=== PATIENT | female | born 1995 | race Caucasian/White ===

== ENCOUNTER 2017-02-06 23:44 | Observation (INO) | payer MEDICAID ==
[~2017-02-06] VITALS: Ht 160 cm; Wt 78.0 kg
[~2017-02-06 23:44] MED LIST: BENZ100 PO; CELE10TA PO; PROM25TA5 PO; TOPA50TA7 PO
[2017-02-06 23:45] VITALS: BP 139/90; PULSE 158; RESP 18; TEMP 98.6; O2SAT 100
[2017-02-06 23:54] VITALS: BP 162/96; PULSE 140; RESP 18; TEMP 98.6; O2SAT 100
[2017-02-07] VITALS (8 sets, daily range): BP systolic 107–137; BP diastolic 53–87; PULSE 84–130; RESP 16–20; TEMP 97.8–98.7; O2SAT 95–100
[2017-02-07] MEDS ORDERED: SODIUM CHLOR 0.9% 1000 ML INJ 1,000 ML IV SCH (00:05)
[2017-02-07] MEDS ORDERED: SODIUM CHLORIDE 0.9% FLUSH 10 ML FLUSH IV FLUSH PRN ×2 (00:15→08:15)
[2017-02-07] MEDS ORDERED: ONDANSETRON HCL 4 MG/2 ML VIAL IVP ONE (00:15)
[2017-02-07] MEDS ORDERED: SODIUM CHLOR 0.9% 1000 ML INJ 1,000 ML IV ONE ×2 (00:15→04:00)
[2017-02-07] MEDS ORDERED: HYDROmorphone HCL PF 1 MG/ML VIAL IVS ONE (00:15)
[2017-02-07 00:36] LABS: AUTOMATED NEUTROPHIL # 9.5 TH/MM3 (1.8-7.7); BASOPHIL # 0.1 TH/MM3 (0-0.2); BASOPHIL % 0.5 % (0.0-2.0); EOSINOPHIL # 0.3 TH/MM3 (0-0.4); EOSINOPHIL % 2.1 % (0.0-4.0); HEMATOCRIT 37.4 % (35.0-46.0); LYMPH % 18.1 % (9.0-44.0); LYMPHOCYTE # 2.3 TH/MM3 (1.0-4.8); MEAN CELL VOLUME 75.2 FL (80.0-100.0); MEAN CORPUSCULAR HEMOGLOBIN 23.5 PG (27.0-34.0); MEAN CORPUSCULAR HGB CONC 31.3 % (32.0-36.0); MONO % 5.5 % (0.0-8.0); NEUT % 73.8 % (16.0-70.0); PLATELET COUNT 433 TH/MM3 (150-450); RED BLOOD COUNT 4.97 MIL/MM3 (4.00-5.30); RED CELL DISTRIBUTION WIDTH 16.2 % (11.6-17.2); WHITE BLOOD COUNT 12.9 TH/MM3 (4.0-11.0)
[2017-02-07 00:39] LABS: HEMO FLAGS AUTO DIFF
--- NOTE | 2017-02-07 00:41 | PD ---
HPI Chief Complaint: Abdominal Pain Time Seen by Provider: 23:59 Travel History International Travel<30 days: No Contact w/Intl Traveler<30days: No Traveled to known affect area: No History of Present Illness HPI 21-year-old female arrives complaining of right abdomen pain for about 3 hours or so. She has had nausea. No vomiting or diarrhea reported. She denies fever. She denies vaginal bleeding or discharge. Last menstruation was 2 weeks prior. She's has no urinary complaint. Last oral intake was 30 minutes prior, fast food. She reports an occasional cough for the past 4 months or so as well as 3 weeks of pain on the left side of her chest. She's had no shortness of breath. She reports no prior past medical or surgical history. She denies taking any medication. She has no known allergy. PFSH Past Medical History Hx Anticoagulant Therapy: No ADHD: No Bipolar Disorder: Yes Weight (Kg): 1 Depression: Yes Cancer: No Cardiovascular Problems: No Chemotherapy: No Cerebrovascular Accident: No Diabetes: No Diminished Hearing: No Headaches: No Psychiatric: Yes (bipolar) Respiratory: No Immunizations Current: No Migraines: No Seizures: No Thyroid Disease: No Ulcer: No Tetanus Vaccination: Unknown Influenza Vaccination: No ?: Not LMP: 2 WEEKS AGO Past Surgical History Surgical History: No Previous Surgery Section: Yes Hysterectomy: No Other Surgery: No Social History Alcohol Use: No Tobacco Use: Yes Substance Use: No (PT DENIES) Allergies-Medications (Allergen,Severity, Reaction): Coded Allergies: No Known Allergies (Unverified , 02/07/17) Reported Meds & Prescriptions Reported Meds & Active Scripts Active Review of Systems Except as stated in HPI: all other systems reviewed are Neg General / Constitutional: No: Fever Gastrointestinal: Positive: Nausea, Abdominal Pain, No: Vomiting, Diarrhea Physical Exam Narrative GENERAL: 21-year-old female pleasant SKIN: Warm and dry. HEAD: Atraumatic. Normocephalic. EYES: Pupils equal and round. No scleral icterus. No injection or drainage. ENT: No nasal bleeding or discharge. Mucous membranes pink and moist. NECK: Trachea midline. No JVD. CARDIOVASCULAR: Tachycardia. Regular. RESPIRATORY: No accessory muscle use. Clear to auscultation. Breath sounds equal bilaterally. GASTROINTESTINAL: soft primarily in the right upper quadrant. No tenderness at McBurney's point. MUSCULOSKELETAL: No obvious deformities. No clubbing. No cyanosis. No edema. NEUROLOGICAL: Awake and alert. No obvious cranial nerve deficits. Motor grossly within normal limits. Normal speech. PSYCHIATRIC: Appropriate mood and affect; insight and judgment normal. Data Data Last Documented VS Vital Signs Date Time Temp Pulse Resp B/P Pulse Ox O2 Delivery O2 Flow Rate FiO2 02/07/17 06:05 98.7 111 18 135/60 99 Room Air Vital signs reviewed, tachycardia Orders Complete Blood Count With Diff (02/07/17 00:05) Comprehensive Metabolic Panel (02/07/17 00:05) Lipase (02/07/17 00:05) Lactic Acid (02/07/17 00:05) Urinalysis - C+S If Indicated (02/07/17 00:05) Ct Abd/Pel W Iv Contrast(Rout) (02/07/17 00:05) Iv Access Insert/Monitor (02/07/17 00:05) Ecg Monitoring (02/07/17 00:05) Oximetry (02/07/17 00:05) Ondansetron Inj (Zofran Inj) (02/07/17 00:15) Sodium Chlor 0.9% 1000 Ml Inj (Ns 1000 M (02/07/17 00:05) Sodium Chloride 0.9% Flush (Ns Flush) (02/07/17 00:15) Electrocardiogram (02/07/17 00:05) Hydromorphone Pf Inj (Dilaudid Pf Inj) (02/07/17 00:15) Ed Urine Pregnancytest Poc (02/07/17 00:05) Sodium Chlor 0.9% 1000 Ml Inj (Ns 1000 M (02/07/17 00:15) Morphine Inj (Morphine Inj) (02/07/17 00:45) Iohexol 350 Inj (Omnipaque 350 Inj) (02/07/17 01:00) D-Dimer (02/07/17 03:48) Chest, Pa & Lat (02/07/17 ) Morphine Inj (Morphine Inj) (02/07/17 04:00) Sodium Chlor 0.9% 1000 Ml Inj (Ns 1000 M (02/07/17 04:00) Ventilation & Perfusion Scan (02/07/17 ) Drug Screen, Random Urine (02/07/17 07:00) Admit Order (Ed Use Only) (02/07/17 07:58) Labs Laboratory Tests Test 02/07/17 02/07/17 02/07/17 02/07/17 00:09 01:45 03:55 08:00 White Blood Count 12.9 TH/MM3 Red Blood Count 4.97 MIL/MM3 Hemoglobin 11.7 GM/DL Hematocrit 37.4 % Mean Corpuscular Volume 75.2 FL Mean Corpuscular Hemoglobin 23.5 PG Mean Corpuscular Hemoglobin 31.3 % Concent Red Cell Distribution Width 16.2 % Platelet Count 433 TH/MM3 Mean Platelet Volume 8.0 FL Neutrophils (%) (Auto) 73.8 % Lymphocytes (%) (Auto) 18.1 % Monocytes (%) (Auto) 5.5 % Eosinophils (%) (Auto) 2.1 % Basophils (%) (Auto) 0.5 % Neutrophils # (Auto) 9.5 TH/MM3 Lymphocytes # (Auto) 2.3 TH/MM3 Monocytes # (Auto) 0.7 TH/MM3 Eosinophils # (Auto) 0.3 TH/MM3 Basophils # (Auto) 0.1 TH/MM3 CBC Comment AUTO DIFF Differential Comment AUTO DIFF CONFIRMED Ovalocytes 1+ Sodium Level 141 MEQ/L Potassium Level 3.5 MEQ/L Chloride Level 109 MEQ/L Carbon Dioxide Level 25.8 MEQ/L Anion Gap 6 MEQ/L Blood Urea Nitrogen 9 MG/DL Creatinine 0.95 MG/DL Estimat Glomerular Filtration 76 ML/MIN Rate Random Glucose 103 MG/DL Lactic Acid Level 1.7 mmol/L Calcium Level 9.1 MG/DL Total Bilirubin 0.3 MG/DL Aspartate Amino Transf 14 U/L (AST/SGOT) Alanine Aminotransferase 24 U/L (ALT/SGPT) Alkaline Phosphatase 93 U/L Total Protein 7.9 GM/DL Albumin 4.1 GM/DL Lipase 98 U/L Urine Color COLORLESS Urine Turbidity CLEAR Urine pH 8.5 Urine Specific [place] 1.049 Urine Protein NEG mg/dL Urine Glucose (UA) NEG mg/dL Urine Ketones NEG mg/dL Urine Occult Blood NEG Urine Nitrite NEG Urine Bilirubin NEG Urine Urobilinogen LESS THAN 2.0 MG/DL Urine Leukocyte Esterase NEG Urine RBC LESS THAN 1 /hpf Urine WBC LESS THAN 1 /hpf Urine Squamous Epithelial 1 /hpf Cells Urine Mucus FEW /lpf Microscopic Urinalysis Comment CULT NOT INDICATED D-Dimer Quantitative (PE/DVT) 0.22 MG/L FEU Urine Opiates Screen NEG Urine Barbiturates Screen NEG Urine Amphetamines Screen NEG Urine Benzodiazepines Screen NEG Urine Cocaine Screen NEG Urine Cannabinoids Screen NEG MDM Medical Decision Making Medical Screen Exam Complete: Yes Emergency Medical Condition: Yes Differential Diagnosis Constipation, Gastritis, Acute Cholecystitis, Biliary Colic, Pancreatitis, MUNOZ , Hepatitis, Bowel Obstruction, Cystitis, Mesenteric Ischemia, AAA, Appendicitis , Renal Stone/Hydronephrosis, GERD, perforated viscous Narrative Course CBC & BMP Diagram 02/07/17 00:09 Lactic acid 1.7 LFTs normal Lipase normal Urinalysis unremarkable CT abdomen and pelvis: 3.5 cm cyst in the left adnexa Last 24 hours Impressions Abdomen/Pelvis CT 02/07/17 0005 Signed Impressions: Service Date/Time: Tuesday, February 07, 2017 01:18 - CONCLUSION: 1. No acute abnormality to explain the patient's right lower quadrant pain. In particular, the appendix is normal by CT criteria. 2. 3.5 cm cyst involving the adnexa. This is presumably ovarian in nature. Consideration should be made to a followup pelvic ultrasound following 2-3 menstrual cycles to document resolution. Ronan Swain Jr., MD Chest X-Ray 02/07/17 0000 Signed Impressions: Service Date/Time: Tuesday, February 07, 2017 05:09 - CONCLUSION: Normal examination. Ronan Swain Jr., MD Patient has received 3 L crystalloid and is persistently tachycardic. She is also received morphine twice. Admission for persistent unexplained tachycardia in this otherwise healthy 21 yo F. D/w Dr Montero at approx 800am. Diagnosis Primary Impression: Tachycardia Additional Impressions: Abdominal pain Qualified Code: R10.9 - Abdominal pain, unspecified location Chest pain Qualified Code: R07.9 - Chest pain, unspecified type Admitting Information Admitting Physician Requests: Admit Scripts No Active Prescriptions or Reported Meds Khang De Paz MD Feb 07, 2017 00:41
[2017-02-07 00:44] LABS: ALT (GPT) 24 U/L (9-42); ANION GAP 6 MEQ/L (5-15); AST (GOT) 14 U/L (16-38); BICARBONATE 25.8 MEQ/L (21.0-32.0); BLOOD UREA NITROGEN 9 MG/DL (7-18); CHLORIDE 109 MEQ/L (98-107); GLOMERULAR FILTRATION RATE 76 ML/MIN (>89); POTASSIUM 3.5 MEQ/L (3.5-5.1); SODIUM (NA) 141 MEQ/L (136-145)
[2017-02-07] MEDS ORDERED: MORPHINE SULFATE 8 MG/ML INJ IV PUSH ONE ×4 (00:45→08:45)
[2017-02-07 00:46] LABS: ALKALINE PHOSPHATASE 93 U/L (45-117); TOTAL BILIRUBIN ADULT 0.3 MG/DL (0.2-1.0)
[2017-02-07] MEDS ORDERED: IOHEXOL 350 MG/ML 10 ML VIAL (for RAD DIAG) IV ONE (01:00)
--- NOTE | 2017-02-07 02:15 | RADRPT ---
EXAM DATE/TIME: 02/07/2017 01:18 [facility] COMPARISON: No previous studies available for comparison. INDICATIONS : Right sided abdominal pain with nausea. IV CONTRAST: 98 cc Omnipaque 350 (iohexol) IV ORAL CONTRAST: No oral contrast ingested. RADIATION DOSE: 11.80 CTDIvol (mGy) MEDICAL HISTORY : None SURGICAL HISTORY : section. ENCOUNTER: Initial ACUITY: 1 day PAIN SCALE: 9/10 LOCATION: Right abdomen TECHNIQUE: Volumetric scanning of the abdomen and pelvis was performed. Using automated exposure control and ad justment of the mA and/or kV according to patient size, radiation dose was kept as low as reasonably achievable to obtain optimal diagnostic quality images. FINDINGS: LOWER LUNGS: The visualized lower lungs are clear. LIVER: Homogeneous density without lesion. There is no dilation of the biliary tree. No calcified gallston es. SPLEEN: Normal size without lesion. PANCREAS: Within normal limits. KIDNEYS: Normal in size and shape. There is no mass, stone or hydronephrosis. ADRENAL GLANDS: Within normal limits. VASCULAR: There is no aortic aneurysm. BOWEL/MESENTERY: The stomach, small bowel, and colon demonstrate no acute abnormality. There is no free intraperitone al air or fluid. Appendix is normal by CT criteria. ABDOMINAL WALL: Within normal limits. RETROPERITONEUM: There is no lymphadenopathy. BLADDER: No wall thickening or mass. REPRODUCTIVE: A 3.5 cm cystic lesion is seen within the left adnexa. The right adnexa and uterus are unremarkable. INGUINAL: There is no lymphadenopathy or hernia. MUSCULOSKELETAL: Within normal limits for patient age. CONCLUSION: 1. No acute abnormality to explain the patient's right lower quadrant pain. In particular, the append ix is normal by CT criteria. 2. 3.5 cm cyst involving the adnexa. This is presumably ovarian in nature. Consideration should be ma de to a followup pelvic ultrasound following 2-3 menstrual cycles to document resolution. Ronan Swain Jr., MD on February 07, 2017 at 1:49 Board Certified Radiologist. This report was verified electronically.
[2017-02-07 02:48] LABS: BLOOD, URINE NEG (NEG); COMMENT (UR) CULT NOT INDICATED; CULTURE IF INDICATED CULT NOT INDICATED; GLUCOSE,URINE NEG (NEG); KETONE, URINE NEG (NEG); MUCUS URINE FEW /lpf (OCC); NITRITE,URINE NEG (NEG); PH, URINE 8.5 (5.0-8.5); SQUAMOUS EPITHELIAL CELL URINE 1 /hpf (0-5); URINE COLOR COLORLESS (YELLW/STRAW)
[2017-02-07 02:58] LABS: OVALOCYTES 1+ (NORMAL); SCAN/DIFF AUTO DIFF CONFIRMED
--- NOTE | 2017-02-07 04:34 | RADRPT ---
EXAM DATE/TIME: 02/07/2017 05:09 [facility] COMPARISON: CHEST PA & LAT, September 20, 2016, 20:49. INDICATIONS : Congestion. Cough. MEDICAL HISTORY : None. SURGICAL HISTORY : None. ENCOUNTER: Initial ACUITY: 1 day PAIN SCORE: 6/10 LOCATION: Bilateral chest FINDINGS: PA and lateral views of the chest demonstrate the lungs to be symmetrically aerated without evidence of mass, infiltrate or effusion. The cardiomediastinal contours are unremarkable. Osseous structure s are intact. CONCLUSION: Normal examination. Ronan Swain Jr., MD on February 07, 2017 at 4:32 Board Certified Radiologist. This report was verified electronically.
[2017-02-07] MEDS ORDERED: NALOXONE HCL 0.4 MG/ML AMP IV PRN (08:15)
[2017-02-07] MEDS: SODIUM CHLORIDE 0.9% FLUSH 10 ML FLUSH IV FLUSH SCH ×2 (08:39→21:00)
[2017-02-07 08:46] LABS: AMPHETAMINE, URINE NEG (NEG); BARBITURATES, URINE NEG (NEG); COCAINE, URINE NEG (NEG)
[2017-02-07] MEDS ORDERED: MAGNESIUM HYDROXIDE SUSP 30 ML CUP PO ONE (09:00)
--- NOTE | 2017-02-07 11:41 | RADRPT ---
EXAM DATE/TIME: 02/07/2017 11:09 [facility] COMPARISON: CHEST PA & LAT, February 07, 2017, 5:09. INDICATIONS : Left chest pain for 3 weeks. DOSE: 8.1 mCi Tc99m MAA IV 1.5 mCi Tc99m DTPA aerosol MEDICAL HISTORY : Bipolar. SURGICAL HISTORY : None. ENCOUNTER: Initial ACUITY: 1 day PAIN SCALE: 3/10 LOCATION: Left chest TECHNIQUE: Following five minutes of tidal breathing of DTPA aerosol, planar images of the lungs were performed in eight projections. The patient was then injected with MAA, and eight-view perfusion scan was perf ormed. FINDINGS: There is a homogeneous pattern of aerosol delivery to the periphery of both lungs. No focal ventilat ory defects are seen. The perfusion lung scan demonstrates a homogenous pattern of uptake in both lungs. No segmental or s ubsegmental defects are seen. CONCLUSION: Normal exam.. Soni Ward MD on February 07, 2017 at 11:38 Board Certified Radiologist. This report was verified electronically.
--- NOTE | 2017-02-07 14:49 | EKG ---
Date Performed: 02/07/2017 Time Performed: 00:14:46 PTAGE: 21 years EKG: SINUS TACHYCARDIA ABNORMAL RHYTHM ECG NO PREVIOUS TRACING DOCTOR: Demarcus Canales Interpretating Date/Time 02/07/2017 14:46:43
[2017-02-07] MEDS: ONDANSETRON ODT 4 MG TAB PO PRN (16:40)
[2017-02-07] MEDS: MORPHINE SULFATE 4 MG/ML INJ IV PUSH PRN ×2 (16:59→22:44)
[2017-02-07] MEDS: SODIUM CHLOR 0.45% 1000 ML INJ 1,000 ML IV SCH ×2 (17:00→19:38)
[2017-02-07] MEDS ORDERED: PANTOPRAZOLE SODIUM 40 MG VIAL IV PUSH ONE (21:30)
--- NOTE | 2017-02-07 22:17 | HHI.HP ---
[facility] Primary Care Physician Admission Diagnosis Tachycardia, Abd Pain, Chest Pain Diagnoses: Travel History International Travel<30 Days: No Contact w/Intl Traveler <30 Da: No Traveled to Known Affected Are: No History of Present Illness Patient is a 21-year-old female with a history of depression, bipolar disorder, ulcer, who presents with acute onset constant, sharp , umbilical/right lower quadrant painwhich subsequently radiated to right upper quadrant with no exacerbating or relieving factors. This pain started shortly after eating 2 burgers at a fast food place. She also reports a six-month history of occasional sharp, intermittent stabbing pain in the left chest exacerbated by breathing and with associated shortness of breath. patient does report a 10 pound intentional weight loss over the past month. her friend is in the room and states that he had appendicitis recently, and her symptoms are almost exactly the same. Review of Systems performed and negative except for HPI and past medical history. Past Family Social History Past Medical History History of ulcer Depression Bipolar disorder History of Tylenol overdose in 2015 Past Surgical History No history of surgery Allergies: Coded Allergies: No Known Allergies (Unverified , 02/07/17) Family History Mother with diabetes. Father with diabetes, hypertension, [place] in his 40s patient believes Social History Patient smokes 1 cigarette per week, reports drinking about 1 drink per week, denies any illicit drugs. Physical Exam Vital Signs Vital Signs Date Time Temp Pulse Resp B/P Pulse Ox O2 Delivery O2 Flow Rate FiO2 02/07/17 20:57 98.0 97 18 107/53 99 02/07/17 15:35 98.1 109 20 132/81 97 02/07/17 11:37 84 17 121/87 99 Room Air 02/07/17 08:31 113 18 137/75 100 Room Air 02/07/17 06:05 98.7 111 18 135/60 99 Room Air 02/07/17 04:00 100 Room Air 02/07/17 04:00 130 18 121/60 100 Room Air 02/06/17 23:54 98.6 140 18 162/96 100 02/06/17 23:45 98.6 158 18 139/90 100 Room Air Physical Exam GENERAL: This is a well-nourished, well-developed patient, in no apparent distress.she is alert and oriented 3. Appears comfortable. SKIN: No rashes, ecchymoses or lesions. Cool and dry. HEAD: Atraumatic. Normocephalic. No temporal or scalp tenderness. EYES: Pupils equal round and reactive. Extraocular motions intact. No scleral icterus. No injection or drainage. ENT: Nose without bleeding, purulent drainage or septal hematoma. Throat without erythema, tonsillar hypertrophy or exudate. Uvula midline. Airway patent. NECK: Trachea midline. No JVD or lymphadenopathy. Supple, nontender, no meningeal signs. CARDIOVASCULAR: Regular rate and rhythm without murmurs, gallops, or rubs. RESPIRATORY: Clear to auscultation. Breath sounds equal bilaterally. No wheezes , rales, or rhonchi. GASTROINTESTINAL: Abdomen soft, nondistended. abdominal tenderness is not consistent.No hepato-splenomegaly, or palpable masses. No guarding. MUSCULOSKELETAL: Extremities without clubbing, cyanosis, or edema. No joint tenderness, effusion, or edema noted. No calf tenderness. Negative Homans sign bilaterally. NEUROLOGICAL: Awake and alert. Cranial nerves II through XII intact. Motor and sensory grossly within normal limits. Five out of 5 muscle strength in all muscle groups. Normal speech. Laboratory Laboratory Tests Test 02/07/17 02/07/17 02/07/17 02/07/17 00:09 01:45 03:55 08:00 White Blood Count 12.9 Red Blood Count 4.97 Hemoglobin 11.7 Hematocrit 37.4 Mean Corpuscular Volume 75.2 Mean Corpuscular Hemoglobin 23.5 Mean Corpuscular Hemoglobin 31.3 Concent Red Cell Distribution Width 16.2 Platelet Count 433 Mean Platelet Volume 8.0 Neutrophils (%) (Auto) 73.8 Lymphocytes (%) (Auto) 18.1 Monocytes (%) (Auto) 5.5 Eosinophils (%) (Auto) 2.1 Basophils (%) (Auto) 0.5 Neutrophils # (Auto) 9.5 Lymphocytes # (Auto) 2.3 Monocytes # (Auto) 0.7 Eosinophils # (Auto) 0.3 Basophils # (Auto) 0.1 CBC Comment AUTO DIFF Differential Comment AUTO DIFF CONFIRMED Ovalocytes 1+ Sodium Level 141 Potassium Level 3.5 Chloride Level 109 Carbon Dioxide Level 25.8 Anion Gap 6 Blood Urea Nitrogen 9 Creatinine 0.95 Estimat Glomerular Filtration 76 Rate Random Glucose 103 Lactic Acid Level 1.7 Calcium Level 9.1 Total Bilirubin 0.3 Aspartate Amino Transf 14 (AST/SGOT) Alanine Aminotransferase 24 (ALT/SGPT) Alkaline Phosphatase 93 Total Protein 7.9 Albumin 4.1 Lipase 98 Urine Color COLORLESS Urine Turbidity CLEAR Urine pH 8.5 Urine Specific [place] 1.049 Urine Protein NEG Urine Glucose (UA) NEG Urine Ketones NEG Urine Occult Blood NEG Urine Nitrite NEG Urine Bilirubin NEG Urine Urobilinogen LESS THAN 2.0 Urine Leukocyte Esterase NEG Urine RBC LESS THAN 1 Urine WBC LESS THAN 1 Urine Squamous Epithelial 1 Cells Urine Mucus FEW Microscopic Urinalysis Comment CULT NOT INDICATED D-Dimer Quantitative (PE/DVT) 0.22 Urine Opiates Screen NEG Urine Barbiturates Screen NEG Urine Amphetamines Screen NEG Urine Benzodiazepines Screen NEG Urine Cocaine Screen NEG Urine Cannabinoids Screen NEG Result Diagram: 02/07/17 0009 02/07/17 0009 Imaging Last Impressions Abdomen/Pelvis CT 02/07/17 0005 Signed Impressions: Service Date/Time: Tuesday, February 07, 2017 01:18 - CONCLUSION: 1. No acute abnormality to explain the patient's right lower quadrant pain. In particular, the appendix is normal by CT criteria. 2. 3.5 cm cyst involving the adnexa. This is presumably ovarian in nature. Consideration should be made to a followup pelvic ultrasound following 2-3 menstrual cycles to document resolution. Ronan Swain Jr., MD Lung Scan- Nuclear Medicine 02/07/17 0000 Signed Impressions: Service Date/Time: Tuesday, February 07, 2017 11:09 - CONCLUSION: Normal exam.. Soni Ward MD Chest X-Ray 02/07/17 0000 Signed Impressions: Service Date/Time: Tuesday, February 07, 2017 05:09 - CONCLUSION: Normal examination. Ronan Swain Jr., MD Assessment and Plan Assessment and Plan //Acute abdominal pain -CT abdomen negative for appendicitis, cholecystitis. LFTs unremarkable. Left ovarian cyst. -We'll consult GI given patient's reported history of ulcer. Start Protonix. Patient does have what looks like iron deficiency, however this is likely secondary to menstrual losses. //Nausea, vomiting. Acute. -Patient reports history of ulcer. Urine drug screen negative. -Zofran by mouth as necessary. //Tachycardia in the 160s on admission. Initially suspected drugs given patient 's past history, however -Urine drug screen is negative. Urine is quite basic, has no cells whatsoever. We'll order creatinine, sodium of urine. -Likely secondary to stress from nausea and vomiting versus substance abuse.. Improved with fluids. //Left ovarian cyst. -Last. Was 2 weeks ago. This is likely ovulation. Patient reports having some pain with ovulation the past. This is left-sided however, does not explain her right-sided pain. -She can have a repeat ultrasound with her primary care in several weeks to verify clearing. This is likely simply a ovulation cyst. //Occasional smoking. Cessation strongly advised. Counseling provided. //History of depression and bipolar disorder. Patient has discontinued all of her medications. I strongly suspect that her abdominal pain is factitious. We 'll consult psychiatry //Chronic intermittent left-sided chest pain. -D-dimer negative. VQ scan negative here. This is likely pleural catch. No chest pain currently. //Prophylaxis. SCDs. Holding anticoagulation for possible ulcer. Discussed Condition With patient, nurse, friend in room Adolfo Montero MD Feb 07, 2017 22:17
[2017-02-07 23:05] LABS: TRANSFERRIN IRON PROFILE 369 MG/DL (200-360)
[2017-02-07 23:08] LABS: FERRITIN 5 NG/ML (8-252)
[2017-02-08] VITALS (7 sets, daily range): BP systolic 107–146; BP diastolic 54–74; PULSE 82–109; RESP 16–20; TEMP 96.1–98.7; O2SAT 95–98
[2017-02-08] MEDS: SODIUM CHLOR 0.45% 1000 ML INJ 1,000 ML IV SCH ×3 (03:38→17:59)
[2017-02-08] MEDS: MORPHINE SULFATE 4 MG/ML INJ IV PUSH PRN ×2 (04:56→21:29)
[2017-02-08 06:05] LABS: ALKALINE PHOSPHATASE 83 U/L (45-117); ALT (GPT) 17 U/L (9-42); ANION GAP 11 MEQ/L (5-15); AST (GOT) 11 U/L (16-38); BICARBONATE 22.8 MEQ/L (21.0-32.0); BLOOD UREA NITROGEN 8 MG/DL (7-18); CHLORIDE 108 MEQ/L (98-107); GLOMERULAR FILTRATION RATE 78 ML/MIN (>89); POTASSIUM 4.1 MEQ/L (3.5-5.1); SODIUM (NA) 142 MEQ/L (136-145); TOTAL BILIRUBIN ADULT LESS THAN 0.1 MG/DL (0.2-1.0)
[2017-02-08] MEDS: SODIUM CHLORIDE 0.9% FLUSH 10 ML FLUSH IV FLUSH SCH ×2 (09:00→20:47)
[2017-02-08] MEDS: PANTOPRAZOLE SODIUM 40 MG VIAL IV PUSH SCH ×2 (09:08→20:47)
--- NOTE | 2017-02-08 10:59 | PD.CONS ---
HPI History of Present Illness This is a 21 year old female who came to the ER for evaluation of abdominal pain. This began Wednesday afternoon. She reports that the pain began below her umbilicus. This was a constant "stabbing pain." As time passed, the pain became more severe and moved to her RLQ. She had a chicken sandwich from [employer] that evening and her pain became more severe after eating. She had some associated chills without fever. She did have associated nausea and vomiting. Initially this was a white foam. This is now a bilious material. She feels that the Morphine seems to be aggravated her nausea/vomiting at this point. She denies any constipation or diarrhea. She denies seeing any blood in her stool. She denies any sick contacts, recent travel, new medications. She does have heartburn and takes antacids almost daily. She has lost 10 lbs over the past month intentionally. She has never had an EGD/Colonoscopy. She does have "heavy and painful" periods. She denies any chance of . She is not followed by a top cleaner at this time. Her last menstrual cycle was 2 weeks ago. She does report that recently, she has had stress incontinence with sneezing/coughing. She denies any dysuria/hematuria. She also reports that she has a hx of ulcers, but she has never had an endoscopy. Abdomen/Pelvis CT ( 02/07/17) 1. No acute abnormality to explain the patient's right lower quadrant pain. In particular, the appendix is normal by CT criteria. 2. 3.5 cm cyst involving the adnexa. This is presumably ovarian in nature. Consideration should be made to a followup pelvic ultrasound following 2-3 menstrual cycles to document resolution. She reports that her pain has subsided and that she currently only has a lower abdominal pressure. She ate a cheeseburger this am and tolerated this. (Laurie Mckeon) PFSH Past Medical History History of ulcer Depression Bipolar disorder History of Tylenol overdose in 2014 Menorrhagia/Dysmenorrhea Past Surgical History No history of surgery (Laurie Mckeon) Coded Allergies: No Known Allergies (Unverified , 02/07/17) Medications Allergies Coded Allergies Type Severity Reaction Last Updated Verified No Known Allergies 02/07/17 No Active Scripts Medications Dose Route/Sig Days Date Category Family History Mother with diabetes. Father with diabetes, hypertension, [place] in his 40s patient believes Social History Smokes once or twice a week. Drinks about one drink per week. Denies any illicit drug use. (Laurie Mckeon) Review of Systems Constitutional: COMPLAINS OF: Fatigue, Weight loss (10 lb weight loss in one month- intentional) Respiratory: DENIES: Cough Cardiovascular: DENIES: Chest pain Gastrointestinal: COMPLAINS OF: Abdominal pain, Nausea, Vomiting, Heartburn, DENIES: Black stools, Bloody stools, Constipation, Diarrhea Genitourinary: COMPLAINS OF: Urinary incontinence Integumentary: DENIES: Abnormal pigmentation Hematologic/lymphatic: DENIES: Bruising Neurologic: DENIES: Headache Psychiatric: DENIES: Confusion (Laurie Mckeon) GI Exam Vitals I&O Vital Signs Date Time Temp Pulse Resp B/P Pulse Ox O2 Delivery O2 Flow Rate FiO2 02/08/17 07:49 97.2 90 16 119/67 98 02/08/17 05:15 18 02/08/17 04:29 98.7 109 16 139/70 98 02/08/17 00:08 84 02/07/17 23:47 97.8 90 16 131/62 95 02/07/17 21:24 98.0 97 18 107/53 99 02/07/17 20:57 98.0 97 18 107/53 99 02/07/17 15:35 98.1 109 20 132/81 97 02/07/17 11:37 84 17 121/87 99 Room Air I/O 02/07/17 02/07/17 02/07/17 02/08/17 02/08/17 02/08/17 07:00 15:00 23:00 07:00 15:00 23:00 Intake Total 793 ml Balance 793 ml Intake Oral 480 ml IV Total 313 ml # Voids 6 3 Imaging Last Impressions Abdomen/Pelvis CT 02/07/17 0005 Signed Impressions: Service Date/Time: Tuesday, February 07, 2017 01:18 - CONCLUSION: 1. No acute abnormality to explain the patient's right lower quadrant pain. In particular, the appendix is normal by CT criteria. 2. 3.5 cm cyst involving the adnexa. This is presumably ovarian in nature. Consideration should be made to a followup pelvic ultrasound following 2-3 menstrual cycles to document resolution. Ronan Swain Jr., MD Lung Scan-VQ Nuclear Medicine 02/07/17 0000 Signed Impressions: Service Date/Time: Tuesday, February 07, 2017 11:09 - CONCLUSION: Normal exam.. Soni Ward MD Chest X-Ray 02/07/17 0000 Signed Impressions: Service Date/Time: Tuesday, February 07, 2017 05:09 - CONCLUSION: Normal examination. Ronan Swain Jr., MD Laboratory Test 02/08/17 04:48 Sodium Level 142 MEQ/L Potassium Level 4.1 MEQ/L Chloride Level 108 MEQ/L Carbon Dioxide Level 22.8 MEQ/L Anion Gap 11 MEQ/L Blood Urea Nitrogen 8 MG/DL Creatinine 0.93 MG/DL Estimat Glomerular Filtration 78 ML/MIN Rate Random Glucose 106 MG/DL Calcium Level 8.5 MG/DL Total Bilirubin LESS THAN 0.1 MG/DL Aspartate Amino Transf 11 U/L (AST/SGOT) Alanine Aminotransferase 17 U/L (ALT/SGPT) Alkaline Phosphatase 83 U/L Total Protein 6.4 GM/DL Albumin 3.3 GM/DL Physical Examination HEENT: Normocephalic; atraumatic; no jaundice. CHEST: CTA. CARDIAC: RRR. ABDOMEN: Soft, nondistended, NONtender; no hepatosplenomegaly; bowel sounds are present in all four quadrants. EXTREMITIES: No clubbing, cyanosis, or edema. SKIN: Normal; no rash; no jaundice. 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 (Laurie MckeonP) Assessment and Plan Plan ASSESSMENT: - Abdominal pain. 2 day hx of abdominal pain. Began Wednesday with lower abdominal pain below umbilicus that then moved to [facility], with associated n/v. Abdomen/Pelvis CT (02/07/17) 1. No acute abnormality to explain the patient's right lower quadrant pain. In particular, the appendix is normal by CT criteria. 2. 3.5 cm cyst involving the adnexa. This is presumably ovarian in nature. Consideration should be made to a followup pelvic ultrasound following 2-3 menstrual cycles to document resolution. Mild leukocytosis 12.9 yesterday. Will recheck. LFT normal. Lipase normal. Pt appears comfortable. She and her boyfriend were in bed together and she was speaking on phone in no distress. States she had a cheeseburger for breakfast. States her pain has improved and is now just "pressure." She is nontender on exam. Will give PPI/Dicyclomine. 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 Recommend seeing top cleaner as outpt. - N/V. Improved. Now only having after taking morphine. - GERD/Heartburn. She was having frequent episodes. Suspect this may be aggravated by her diet. PPI. - Dysmenorrhea, Menorrhagia, ovarian cyst. CT with 3.5 ovarian cyst. Recommends FU pelvic US 2-3 menstrual cycles to document resolution. PLAN: - SHARON (She is actually NPO, but eating food brought to her. Tolerated cheeseburger for breakfast) - Antireflux measures - Cont. 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 Dalal and myself and this note is written on his behalf (Laurie Mckeon) Physician Comments Patient continues to complain of pain in the upper and right upper abdomen she does admit to have used ibuprofen and has had issues with nausea and vomiting although she was seen eating a burger earlier At this point I will proceed with an EGD to further evaluate the symptoms ( Alec Dalal MD) Laurie Mckeon Feb 08, 2017 10:59 Alec Dalal MD Feb 08, 2017 22:01
--- NOTE | 2017-02-08 12:09 | PD.CONS ---
Provisional Diagnosis Admission Date Feb 07, 2017 at 08:00 [place] I. Adjustment disorder with depression, bipolar disorder, Hobbs use disorder [place] II. Unspecified personality disorder [place] III. Abdominal pain [place] IV. Unemployed [place] V. 57 History of Present Illness Service Psychiatry Consult Requested By Primary Care Physician No Primary Care Physician HPI The patient is a 21-year-old woman, domiciled with and her best friend, unemployed, with psychiatric history of bipolar disorder, anxiety, depression, 3 previous psychiatric hospitalizations, last hospitalization was in 2016 in [facility], history of self cutting behavior, 3 previous suicidal attempts by overdosing, no active outpatient psychiatric care or psychotropics, no significant medical history, who presents with acute onset constant, sharp , umbilical/right lower quadrant painwhich subsequently radiated to right upper quadrant with no exacerbating or relieving factors. This pain started shortly after eating 2 burgers at a fast food place. She also reports a six-month history of occasional sharp, intermittent stabbing pain in the left chest exacerbated by breathing and with associated shortness of breath.patient does report a 10 pound intentional weight loss over the past month. Her friend is in the room and states that he had appendicitis recently, and her symptoms are almost exactly the same. On psychiatric evaluation today patient is found sleeping in her bed in the ER, her "best friend"is with her the sleeping in the same bed. Patient reports that she feels now much better of her abdominal pain, she reports good mood, when she came to the ER she was feeling anxious and depressed secondary to the belief that something wrong was going on. Patient denies depressive symptoms, she denies anhedonia, she denies hopelessness, she denies helplessness, she denies suicidal ideation, she developed ideation. Patient is future oriented, he was able to share plans for the future, she states she is now thinking about buying a house and finish and her college. She denies anxiety, she denies manic symptoms, she denies visual and auditory hallucinations. Patient is fully oriented, no paranoia, no delusions observed. She reports occasional use of marijuana, denies the use of other illicit drugs, denies the use of alcohol. Review of Systems Constitutional: DENIES: Diaphoretic episodes, Fatigue, Fever, Weight gain, Weight loss, Chills, Dizziness, Change in appetite, Night Sweats Endocrine: DENIES: Abnorml menstrual pattern, Heat/cold intolerance, Polydipsia , Polyuria, Polyphagia Ears, nose, mouth, throat: DENIES: Tinnitus, Hearing loss, Vertigo, Nasal discharge, Oral lesions, Throat pain, Hoarseness, Ear Pain, Running Nose, Epistaxis, Sinus Pain, Toothache, Odynophagia Cardiovascular: DENIES: Chest pain, Palpitations, Syncope, Dyspnea on Exertion , PND, Lower Extremity Edema, Orthopnea, Claudication Gastrointestinal: DENIES: Abdominal pain, Black stools, Bloody stools, Constipation, Diarrhea, Nausea, Vomiting, Difficulty Swallowing, Anorexia Musculoskeletal: DENIES: Joint pain, Muscle aches, Stiffness, Joint Swelling, Back pain, Neck pain Integumentary: DENIES: Abnormal pigmentation, Pruritus, Rash, Nail changes, Breast masses, Breast skin changes, Nipple discharge Hematologic/lymphatic: DENIES: Bruising, Lymphadenopathy Immunologic/allergic: DENIES: Eczema, Urticaria Neurologic: DENIES: Abnormal gait, Headache, Localized weakness, Paresthesias, Seizures, Speech Problems, Tremor, Poor Balance Past Family Social History Coded Allergies: No Known Allergies (Unverified , 02/07/17) Discontinued Reported Medications Citalopram (Celexa)10 Mg Tab10 Mg PO DAILY #30 TAB Ref 0 09/20/16 Topiramate (Topamax)50 Mg Tab50 Mg PO BID #60 TAB Ref 0 09/20/16 Discontinued Scripts Benzonatate (Tessalon Perles)100 Mg [id number] Mg PO TID PRN (COUGH) 5 Days Ref 0 Prov:Rupal Canales MD 09/20/16 Promethazine (Phenergan)25 Mg Tab25 Mg PO Q6H PRN (Nausea/Vomiting) #20 TAB Ref 0 Prov:Rupal Canales MD 09/20/16 Current Medications Medications (Trade) Dose Ordered Sig/Randy Route Start Time Stop Time Status Last Admin (11/16 NS 1000 ml Inj) 1,000 ml @ 125 mls/hr Q8H IV 02/07/17 08:30 02/08/17 09:10 (NS Flush) 2 ml UNSCH PRN IV FLUSH 02/07/17 08:15 (NS Flush) 2 ml BID IV FLUSH 02/07/17 09:00 (Narcan Inj) 0.4 mg UNSCH PRN IV 02/07/17 08:15 (Zofran Odt) 4 mg Q6H PRN PO 02/07/17 16:00 02/07/17 16:40 (Morphine Inj) 4 mg Q3H PRN IV PUSH 02/07/17 16:30 02/08/17 04:56 (Morphine Inj) 2 mg Q3H PRN IV PUSH 02/07/17 16:30 (Protonix Inj) 40 mg Q12HR IV PUSH 02/08/17 09:00 02/08/17 09:08 Family History Her mother has depression Social History Patient was born and raised in [place], she has been living in [place] for 10 years, she is unemployed, supported by , she is in [place] with her and with her best friend, she is now in the process to get a [employer] Patient's Strengths (min. 2) Verbal communication, good insight Physical Exam No EPS, no tremors, no stiffness, no hyperactivity, agitation on physical exam Vital Signs Vital Signs Date Time Temp Pulse Resp B/P Pulse Ox O2 Delivery O2 Flow Rate FiO2 02/08/17 11:42 97.0 91 16 122/74 98 02/07/17 11:37 Room Air I/O 02/07/17 02/07/17 02/08/17 08:00 16:00 00:00 Intake Total 793 ml Balance 793 ml Lab Results WBCs 12.9, HCT 37.4, HGB 11.7, urine test is clear, NA 141, K3.5, AST 14 AST 24 Mental Status Examination Appearance young woman, age appearing, [facility], good hygiene, calm and cooperative and pleasant Speech: Unremarkable Orientation: x3 Memory: Unremarkable Thought Process: Logical Thought Content: Unremarkable Hallucination Type: None Suicidal Ideation: No Previous Suicide Attempts: No Homicidal Ideation: No Previous Homicide Attempts: No Insight: Good Affect: Good Mood: Appropriate Motor Activity: Normal gait Assessment & Plan Problem List: (1) Bipolar 1 disorder, depressed, full remission ICD Code: F31.76 (2) Adjustment disorder with depressed mood Assessment & Plan: The patient is a 21-year-old woman, domiciled with and her best friend, unemployed, with psychiatric history of bipolar disorder, anxiety, depression, 3 previous psychiatric hospitalizations, last hospitalization was in 2015 in [facility], history of self cutting behavior, 3 previous suicidal attempts by overdosing, no active outpatient psychiatric care or psychotropics, no significant medical history, who presents with acute onset constant, sharp , umbilical/right lower quadrant pain which subsequently radiated to right upper quadrant with no exacerbating or relieving factors. So far labs, abdominal CT, chest XR are unremarkable. Patient was consulted to psychiatry for potential medication management of underlying psychiatric conditions, symptomatology of depression and to rule out potential factitious disorder. On psychiatric evaluation patient is calm, cooperative, she denies depressive symptoms, she denies anxiety, she denies marcial and psychosis. Patient denies suicidal or homicidal ideation, she denies visual and auditory hallucinations. She reports feeling much better now that "I know nothing's wrong with me". At this moment there is no and no evidence to support a diagnosis of factitious disorder, her initial symptomatology of depression seems to be secondary to her preoccupations about medical condition. Extensive support, psychoeducation and motivation provided, patient was widely educated about the importance of having an outpatient mental health provider. No psychotropics indicated, no psychiatric hospitalization recommended. Consult appreciated. ICD Code: F43.21 Assessment & Plan Estimated LOS: days Jae Mejia MD Feb 08, 2017 12:09
[2017-02-08] MEDS: DICYCLOMINE HCL 20 MG TAB PO SCH ×2 (13:50→17:59)
--- NOTE | 2017-02-08 23:31 | HHI.PR ---
Subjective Remarks Patient seen this morning around 9:30 AM. Says she is feeling a little better. Abnormal pain improved on pain medication. Nausea improved on Zofran. Denies any chest pain or shortness of breath. Objective Vital Signs Date Time Temp Pulse Resp B/P Pulse Ox O2 Delivery O2 Flow Rate FiO2 02/08/17 21:05 90 02/08/17 19:13 97.4 98 20 146/70 95 02/08/17 16:59 96.1 82 16 107/54 96 02/08/17 11:42 97.0 91 16 122/74 98 02/08/17 07:49 97.2 90 16 119/67 98 02/08/17 05:15 18 02/08/17 04:29 98.7 109 16 139/70 98 02/08/17 00:08 84 02/07/17 23:47 97.8 90 16 131/62 95 I/O 02/07/17 02/07/17 02/07/17 02/08/17 02/08/17 02/08/17 07:00 15:00 23:00 07:00 15:00 23:00 Intake Total 793 ml 720 ml Balance 793 ml 720 ml Intake Oral 480 ml 720 ml IV Total 313 ml # Voids 6 3 3 Result Diagram: 02/07/17 0009 02/08/17 0448 Objective Remarks GENERAL: patient lying in bed. Appears comfortable. Alert and oriented 3. SKIN: Warm and dry. HEAD: Normocephalic. EYES: No scleral icterus. No injection or drainage. NECK: Supple, trachea midline. No JVD. CARDIOVASCULAR: Regular rate and rhythm without murmurs, gallops, or rubs. RESPIRATORY: Breath sounds equal bilaterally. No accessory muscle use. GASTROINTESTINAL: Abdomen soft, non-tender, nondistended. MUSCULOSKELETAL: No cyanosis, or edema. BACK: Nontender without obvious deformity. No CVA tenderness. A/P Assessment and Plan //Acute abdominal pain -Improved on pain medication. -CT abdomen negative for appendicitis, cholecystitis. LFTs unremarkable. Left ovarian cyst. -We'll consult GI given patient's reported history of ulcer. Start Protonix. Patient does have what looks like iron deficiency, however this is likely secondary to menstrual losses. = To be secondary to gastric ulcer versus ovulation cyst versus psychiatric issues. -Plan for EGD in the morning. //Nausea, vomiting. Acute. -Patient reports history of ulcer. Urine drug screen negative. -Zofran by mouth as necessary. //Tachycardia in the 160s on admission. Initially suspected drugs given patient 's past history, however -Urine drug screen is negative. Urine is quite basic, has no cells whatsoever. We'll order creatinine, sodium of urine. -Likely secondary to stress from nausea and vomiting versus substance abuse.. Improved with fluids. = Stable. Continue to monitor. //Left ovarian cyst. -Last. Was 2 weeks ago. This is likely ovulation. Patient reports having some pain with ovulation the past. This is left-sided however, does not explain her right-sided pain. -She can have a repeat ultrasound with her primary care in several weeks to verify clearing. This is likely simply a ovulation cyst. //Occasional smoking. Cessation strongly advised. Counseling provided. //History of depression and bipolar disorder. Patient has discontinued all of her medications. I strongly suspect that her abdominal pain is factitious. We 'll consult psychiatry -Appreciate psychiatry assistance. //Chronic intermittent left-sided chest pain. -D-dimer negative. VQ scan negative here. This is likely pleural catch. No chest pain currently. = Patient demonstrates this chest pain on exam. I have recommended deep breathing exercises on a regular basis //Prophylaxis. SCDs. Holding anticoagulation for possible ulcer. Discharge Planning patient may be discharged home on PPI after EGD. She does have a single left ovarian cyst, likely an ovulation cyst which could be followed up in several weeks with a repeat ultrasound. Adolfo Montero MD Feb 08, 2017 23:31
[2017-02-09] VITALS (7 sets, daily range): BP systolic 117–143; BP diastolic 59–81; PULSE 71–96; RESP 16–20; TEMP 97.6–98.8; O2SAT 97–99
[2017-02-09] MEDS: ONDANSETRON ODT 4 MG TAB PO PRN (03:04)
[2017-02-09] MEDS: MORPHINE SULFATE 4 MG/ML INJ IV PUSH PRN (03:04)
[2017-02-09] MEDS: SODIUM CHLOR 0.45% 1000 ML INJ 1,000 ML IV SCH ×2 (03:38→12:05)
[2017-02-09 06:10] LABS: AUTOMATED NEUTROPHIL # 6.1 TH/MM3 (1.8-7.7); BASOPHIL % 0.5 % (0.0-2.0); EOSINOPHIL # 0.6 TH/MM3 (0-0.4); EOSINOPHIL % 6.4 % (0.0-4.0); HEMATOCRIT 32.8 % (35.0-46.0); LYMPHOCYTE # 2.5 TH/MM3 (1.0-4.8); MEAN CELL VOLUME 74.6 FL (80.0-100.0); MEAN CORPUSCULAR HEMOGLOBIN 24.6 PG (27.0-34.0); MONO % 7.3 % (0.0-8.0); NEUT % 60.8 % (16.0-70.0); PLATELET COUNT 365 TH/MM3 (150-450); RED BLOOD COUNT 4.39 MIL/MM3 (4.00-5.30)
[2017-02-09 06:31] LABS: HEMO FLAGS AUTO DIFF
[2017-02-09 06:37] LABS: POTASSIUM 3.9 MEQ/L (3.5-5.1)
[2017-02-09 08:23] LABS: PLATELET ESTIMATE SMEAR NORMAL (NORMAL); PLATELET MORPHOLOGY NORMAL (NORMAL); SCAN/DIFF AUTO DIFF CONFIRMED
[2017-02-09] MEDS: SODIUM CHLORIDE 0.9% FLUSH 10 ML FLUSH IV FLUSH SCH ×2 (09:00→20:34)
[2017-02-09] MEDS ORDERED: PROPOFOL 200 MG/20 ML AMP IV ONE (09:07)
--- NOTE | 2017-02-09 09:27 | GIPROC ---
[facility] [address] [facility]. [facility], [address] EGD PROCEDURE REPORT EXAM DATE: 02/09/2017 PATIENT NAME: Jennie Galvan MR #: [id number] BIRTHDATE: 1995 ATTENDING: Alec Dalal MD ORDER #: [id number] CAR STOWER: Frederick Vargas and Papi Mitchell STATUS: inpatient INDICATIONS: The patient is a 21 yr old female here for an EGD due to epigastric abdominal pain PROCEDURE PERFORMED: EGD w/ biopsy MEDICATIONS: None and Per Anesthesia. TOPICAL ANESTHETIC: CONSENT: The patient understands the risks and benefits of the procedure and understands that these risks include, but are not limited to: sedation, allergic reaction, infection, perforation and/or bleeding. Alternative means of evaluation and treatment include, among others: physical exam, x-rays, and/or surgical intervention. The patient elects to proceed with this endoscopic procedure. medical equipment was checked for proper function. Hand hygiene and appropriate measures for infection prevention was taken. After the risks, benefits and alternatives of the procedure were thoroughly explained, Informed consent was verified, confirmed and timeout was successfully executed by the treatment team. The patient was anesthetized with topical anesthesia and the Pentax [id number] endoscope was introduced through the mouth and advanced to the second portion of the duodenum. Retroflexed views revealed no abnormalities The gastroscope was then slowly withdrawn and removed. ESOPHAGUS: There was LA Class A esophagitis noted. Multiple biopsies were performed. The endoscopy was otherwise normal. STOMACH: There was a moderate amount of residual food seen in the gastric body and gastric fundus. Due to the residual food, complete mucosal examination could not be performed. ADVERSE EVENTS: There were no complications. IMPRESSIONS: 1. There was LA Class A esophagitis noted; multiple biopsies were performed 2. Normal endoscopy otherwise 3. Food residue in the gastric body and gastric fundus 4. Retroflexed views revealed no abnormalities RECOMMENDATIONS: 1. Await biopsy results. Biopsy results will not be ready for 7-10 days. If you don't hear from us in two weeks, call our office for biopsy results. 2. Anti-reflux regimen 3. Continue PPI 4. Follow-up: GI clinic 4 week(s) 5. Gastric emptying study PATIENT CONDITION: stable DISPOSITION: Inpatient REPEAT EXAM: Alec Dalal MD eSigned: Alec Dalal MD 02/09/2017 9:26 AM cc: PATIENT NAME: Jennie Galvan MR#: [id number]
[2017-02-09] MEDS: FERROUS SULFATE 325 MG (65 MG ELEMENTAL IRON) TAB PO SCH (09:48)
[2017-02-09] MEDS: PANTOPRAZOLE SODIUM 40 MG VIAL IV PUSH SCH ×2 (09:48→20:34)
--- NOTE | 2017-02-09 10:59 | HHI.PR ---
Subjective Remarks Follow-up for abdominal pain. Patient is seen after EGD today. She denies any nausea, vomiting, abdominal pain, fever, chills. She states she had a normal bowel movement yesterday. She has recommended for gastric emptying study due to EGD findings, discussed with RN, unable to perform gastric contents study until tomorrow. Discussed with the patient who is concerned about further follow-up due to lack of insurance. Objective Vitals Vital Signs Date Time Temp Pulse Resp B/P Pulse Ox O2 Delivery O2 Flow Rate FiO2 02/09/17 09:26 86 18 124/68 98 02/09/17 09:21 89 18 119/67 98 02/09/17 09:15 98.3 103 16 124/65 99 02/09/17 08:38 98.0 96 20 143/80 98 02/09/17 04:27 98.0 96 20 143/81 98 02/09/17 00:37 98.8 90 20 138/59 98 02/08/17 21:05 90 02/08/17 19:13 97.4 98 20 146/70 95 02/08/17 16:59 96.1 82 16 107/54 96 02/08/17 11:42 97.0 91 16 122/74 98 I/O 02/08/17 02/08/17 02/08/17 02/09/17 02/09/17 02/09/17 07:00 15:00 23:00 07:00 15:00 23:00 Intake Total 720 ml 100 ml Balance 720 ml 100 ml Intake Oral 720 ml IV Total 100 ml # Voids 3 3 Result Diagram: 02/09/17 0532 02/09/17 0452 Imaging Last Impressions Abdomen/Pelvis CT 02/07/17 0005 Signed Impressions: Service Date/Time: Tuesday, February 07, 2017 01:18 - CONCLUSION: 1. No acute abnormality to explain the patient's right lower quadrant pain. In particular, the appendix is normal by CT criteria. 2. 3.5 cm cyst involving the adnexa. This is presumably ovarian in nature. Consideration should be made to a followup pelvic ultrasound following 2-3 menstrual cycles to document resolution. Ronan Swain Jr., MD Lung Scan- Nuclear Medicine 02/07/17 0000 Signed Impressions: Service Date/Time: Tuesday, February 07, 2017 11:09 - CONCLUSION: Normal exam.. Soni Ward MD Chest X-Ray 02/07/17 0000 Signed Impressions: Service Date/Time: Tuesday, February 07, 2017 05:09 - CONCLUSION: Normal examination. Ronan Swain Jr., MD Objective Remarks GENERAL: Well-developed well-nourished. In no acute distress. SKIN: Warm and dry. No lesions noted. HEENT: Normocephalic. Pupils equal and round. Mucous membranes pink and moist. CARDIOVASCULAR: Regular rate and rhythm. No murmur appreciated. RESPIRATORY: No accessory muscle use. Clear to auscultation. Breath sounds equal bilaterally. GASTROINTESTINAL: Abdomen soft, non-tender, nondistended. Bowel sounds x4. MUSCULOSKELETAL: No obvious deformities. No clubbing or cyanosis. No edema. NEUROLOGICAL: Awake and alert. No focal neurological deficits. Moves upper and lower extremities spontaneously. Normal speech. PSYCHIATRIC: Appropriate mood and affect; insight and judgment normal. A/P Assessment and Plan 21-year-old female with a history of depression, bipolar disorder, ulcer, who presented with abdominal pain //Acute abdominal pain -CT abdomen negative for appendicitis, cholecystitis. LFTs unremarkable. Left ovarian cyst. -Consulted GI given patient's reported history of ulcer. Started Protonix. GI performed EGD which showed esophagitis and food residue. = Gastric emptying study -Continue supportive care //Microcytic anemia secondary to iron deficiency Labs reviewed -Start ferrous sulfate //Left ovarian cyst Seen on abdominal CT -LMP was 2 weeks ago. This is likely ovulation. Patient reports having some pain with ovulation the past. This is left-sided however, does not explain her right-sided pain. -She can have a repeat ultrasound with her primary care or [employer] WORKFLOW CONSULTANT in several weeks to verify clearing. Suspect and ovulation cyst. //Occasional smoking. -Cessation counseling. //History of depression and bipolar disorder. -Appreciate psychiatry assistance. //Chronic intermittent left-sided chest pain. D-dimer negative. VQ scan negative. -No chest pain currently. //Prophylaxis. SCDs. Written by Deacon Hernandez, acting as scribe for Dr. Tolbert on 02/09/17 at 10:59. All or portions of this note were transcribed by [email or web address] [email or web address]. I, Dr. Thao Tolbert personally performed the history, physical exam, and medical decision making; and confirmed the accuracy of the information in the transcribed note. Authenticated by Dr. Thao Tolbert on 02/09/17 at 10:59. Discharge Planning Follow-up gastric emptying study and GI recommendations. Deacon Hernandez Feb 09, 2017 10:59 Thao Tolbert MD Feb 09, 2017 15:53
[2017-02-10 00:32] VITALS: BP 138/61; PULSE 100; RESP 20; TEMP 98; O2SAT 98
[2017-02-10] MEDS: SODIUM CHLOR 0.45% 1000 ML INJ 1,000 ML IV SCH (01:23)
[2017-02-10 04:10] VITALS: BP 129/62; PULSE 93; RESP 20; TEMP 98.7; O2SAT 98
[2017-02-10 07:41] VITALS: BP 114/59; PULSE 94; RESP 16; TEMP 98.4; O2SAT 98
[2017-02-10] MEDS: PANTOPRAZOLE SODIUM 40 MG VIAL IV PUSH SCH (08:53)
[2017-02-10] MEDS: SODIUM CHLORIDE 0.9% FLUSH 10 ML FLUSH IV FLUSH SCH (08:53)
[2017-02-10] MEDS: FERROUS SULFATE 325 MG (65 MG ELEMENTAL IRON) TAB PO SCH (08:53)
[2017-02-10] MEDS ORDERED: FERR325T PO (10:15)
[2017-02-10] MEDS ORDERED: PROT40TA PO (10:15)
--- NOTE | 2017-02-10 10:15 | HHI.PR ---
Subjective Remarks Follow-up for abdominal pain. Patient has been tolerating diet. She had a normal bowel movement yesterday. She denies any fevers, chills, nausea, vomiting, constipation, shortness breath, chest pain, leg swelling. Going for gastric emptying today. Objective Vitals Vital Signs Date Time Temp Pulse Resp B/P Pulse Ox O2 Delivery O2 Flow Rate FiO2 02/10/17 07:41 98.4 94 16 114/59 98 02/10/17 04:10 98.7 93 20 129/62 98 02/10/17 00:32 98.0 100 20 138/61 98 02/09/17 20:22 78 02/09/17 19:29 98.7 88 20 141/69 99 02/09/17 15:21 98.3 89 18 133/68 97 02/09/17 11:02 97.6 71 16 117/79 97 I/O 02/09/17 02/09/17 02/09/17 02/10/17 02/10/17 02/10/17 06:59 14:59 22:59 06:59 14:59 22:59 Intake Total 100 ml Balance 100 ml IV Total 100 ml Result Diagram: 02/09/17 0532 02/09/17 0452 Imaging Last Impressions Abdomen/Pelvis CT 02/07/17 0005 Signed Impressions: Service Date/Time: Tuesday, February 07, 2017 01:18 - CONCLUSION: 1. No acute abnormality to explain the patient's right lower quadrant pain. In particular, the appendix is normal by CT criteria. 2. 3.5 cm cyst involving the adnexa. This is presumably ovarian in nature. Consideration should be made to a followup pelvic ultrasound following 2-3 menstrual cycles to document resolution. Ronan Swain Jr., MD Lung Scan-V Nuclear Medicine 02/07/17 0000 Signed Impressions: Service Date/Time: Tuesday, February 07, 2017 11:09 - CONCLUSION: Normal exam.. Soni Ward MD Chest X-Ray 02/07/17 0000 Signed Impressions: Service Date/Time: Tuesday, February 07, 2017 05:09 - CONCLUSION: Normal examination. Ronan Swain Jr., MD Objective Remarks GENERAL: Well-developed well-nourished. In no acute distress. SKIN: Warm and dry. No lesions noted. HEENT: Normocephalic. Pupils equal and round. Mucous membranes pink and moist. CARDIOVASCULAR: Regular rate and rhythm. No murmur appreciated. RESPIRATORY: No accessory muscle use. Clear to auscultation. Breath sounds equal bilaterally. GASTROINTESTINAL: Abdomen soft, non-tender, nondistended. Bowel sounds x4. MUSCULOSKELETAL: No obvious deformities. No clubbing or cyanosis. No edema. NEUROLOGICAL: Awake and alert. No focal neurological deficits. Moves upper and lower extremities spontaneously. Normal speech. PSYCHIATRIC: Appropriate mood and affect; insight and judgment normal. A/P Problem List: (1) Abdominal pain ICD Code: R10.9 Status: Resolved (2) Chest pain ICD Code: R07.9 Status: Resolved (3) Nausea and vomiting ICD Code: R11.2 Status: Resolved (4) Mood disorder ICD Code: F39 Status: Chronic Assessment and Plan 21-year-old female with a history of depression, bipolar disorder, ulcer, who presented with abdominal pain //Acute abdominal pain -CT abdomen negative for appendicitis, cholecystitis. LFTs unremarkable. Left ovarian cyst. -Consulted GI given patient's reported history of ulcer. Started Protonix. GI performed EGD which showed esophagitis and food residue. = Gastric emptying study -Continue supportive care //Microcytic anemia secondary to iron deficiency Labs reviewed -Started ferrous sulfate //Left ovarian cyst Seen on abdominal CT -LMP was 2 weeks ago. This is likely ovulation. Patient reports having some pain with ovulation the past. This is left-sided however, does not explain her right-sided pain. -She can have a repeat ultrasound with her primary care or THEATER MANAGER in several weeks to verify clearing. Suspect an ovulation cyst. //Occasional smoking. -Cessation counseling. //History of depression and bipolar disorder. -Appreciate psychiatry assistance. //Chronic intermittent left-sided chest pain. D-dimer negative. VQ scan negative. -No chest pain currently. //Prophylaxis. SCDs. Written by Deacon Hernandez, acting as scribe for Dr. Tolbert on 02/10/17 at 10:14. All or portions of this note were transcribed by meg YARBROUGH. I, Dr. Thao Tolbert personally performed the history, physical exam, and medical decision making; and confirmed the accuracy of the information in the transcribed note. Authenticated by Dr. Thao Tolbert on 02/10/17 at 10:14. Discharge Planning Follow-up gastric emptying study and GI recommendations. Discharge planning if cleared by gastroenterology. Problem Qualifiers (1) Abdominal pain: Qualified Code: R10.9 - Abdominal pain, unspecified location (2) Chest pain: Qualified Code: R07.9 - Chest pain, unspecified type Deacon Hernandez Feb 10, 2017 10:14 Thao Tolbert MD Feb 10, 2017 15:32
[2017-02-10] MEDS ORDERED: METOCLOPRAMIDE HCL 10 MG/2 ML VIAL ONE (12:21)
--- NOTE | 2017-02-10 13:29 | RADRPT ---
EXAM DATE/TIME: 02/10/2017 10:33 [facility] COMPARISON: No previous studies available for comparison. INDICATIONS : Abdomen pain. EGD which showed esophagitis and food residue. DOSE: 1.1 mCi Tc99m Sulfur Colloid Labeled Whole egg PO MEDICATONS: 1.) 5 mg Reglan IV at 90 minutes IMAGIN hrs MEDICAL HISTORY : Bipolar. SURGICAL HISTORY : None. ENCOUNTER: Initial ACUITY: 2 days PAIN SCALE: 2/10 LOCATION: upper quadrant TECHNIQUE: Following the oral ingestion of radiotracer-labeled meal, dynamic sequential images in the [employer] projec tion were acquired with simultaneous computer acquisition. The data set was decay-corrected. FINDINGS: There is little to no gastric emptying prior to administration of Reglan. There is prompt response to Reglan with emptying immediately approximately 1/3 the gastric contents. CONCLUSION: Markedly delayed gastric emptying with the reasonable response initially to Reglan. Hakeem Cam MD FACR on February 10, 2017 at 13:26 Board Certified Radiologist. This report was verified electronically.
[2017-02-10] MEDS ORDERED: METO10TA PO (13:48)
--- NOTE | 2017-02-10 13:48 | HHI.DS ---
Discharge Summary Admission Date Feb 07, 2017 at 08:00 Discharge Date: Feb 10, 2017 Admitting Diagnosis Tachycardia, Abd Pain, Chest Pain (1) Abdominal pain ICD Code: R10.9 Diagnosis: Principal (2) Chest pain ICD Code: R07.9 Diagnosis: Secondary (3) Nausea and vomiting ICD Code: R11.2 Diagnosis: Principal (4) Mood disorder ICD Code: F39 Diagnosis: Secondary Procedures EGD 02/09 Brief History - From Admission Patient is a 21-year-old female with a history of depression, bipolar disorder, ulcer, who presents with acute onset constant, sharp , umbilical/right lower quadrant painwhich subsequently radiated to right upper quadrant with no exacerbating or relieving factors. This pain started shortly after eating 2 burgers at a fast food place. She also reports a six-month history of occasional sharp, intermittent stabbing pain in the left chest exacerbated by breathing and with associated shortness of breath. patient does report a 10 pound intentional weight loss over the past month. her friend is in the room and states that he had appendicitis recently, and her symptoms are almost exactly the same. CBC/BMP: 02/09/17 0532 02/09/17 0452 Significant Findings Laboratory Tests Test 02/08/17 02/09/17 02/09/17 04:48 04:52 05:32 Chloride Level 108 MEQ/L 109 MEQ/L (98-107) (98-107) Estimat Glomerular Filtration 78 ML/MIN (>89) Rate Total Bilirubin LESS THAN 0.1 MG/DL (0.2-1.0) Aspartate Amino Transf 11 U/L (16-38) (AST/SGOT) Albumin 3.3 GM/DL (3.4-5.0) Hemoglobin 10.8 GM/DL (11.6-15.3) Hematocrit 32.8 % (35.0-46.0) Mean Corpuscular Volume 74.6 FL (80.0-100.0) Mean Corpuscular Hemoglobin 24.6 PG (27.0-34.0) Eosinophils (%) (Auto) 6.4 % (0.0-4.0) Eosinophils # (Auto) 0.6 TH/MM3 (0-0.4) Imaging Last Impressions Gastric Emptying Nuclear Medicine 02/10/17 0000 Signed Impressions: Service Date/Time: Friday, February 10, 2017 10:33 - CONCLUSION: Markedly delayed gastric emptying with the reasonable response initially to Reglan. Hakeem Cam MD FACR Abdomen/Pelvis CT 02/07/17 0005 Signed Impressions: Service Date/Time: Tuesday, February 07, 2017 01:18 - CONCLUSION: 1. No acute abnormality to explain the patient's right lower quadrant pain. In particular, the appendix is normal by CT criteria. 2. 3.5 cm cyst involving the adnexa. This is presumably ovarian in nature. Consideration should be made to a followup pelvic ultrasound following 2-3 menstrual cycles to document resolution. Ronan Swain Jr., MD Lung Scan-VQ Nuclear Medicine 02/07/17 0000 Signed Impressions: Service Date/Time: Tuesday, February 07, 2017 11:09 - CONCLUSION: Normal exam.. Soni Ward MD Chest X-Ray 02/07/17 0000 Signed Impressions: Service Date/Time: Tuesday, February 07, 2017 05:09 - CONCLUSION: Normal examination. Ronan Swain Jr., MD PE at Discharge GENERAL: Well-developed well-nourished. In no acute distress. SKIN: Warm and dry. No lesions noted. HEENT: Normocephalic. Pupils equal and round. Mucous membranes pink and moist. CARDIOVASCULAR: Regular rate and rhythm. No murmur appreciated. RESPIRATORY: No accessory muscle use. Clear to auscultation. Breath sounds equal bilaterally. GASTROINTESTINAL: Abdomen soft, non-tender, nondistended. Bowel sounds x4. MUSCULOSKELETAL: No obvious deformities. No clubbing or cyanosis. No edema. NEUROLOGICAL: Awake and alert. No focal neurological deficits. Moves upper and lower extremities spontaneously. Normal speech. PSYCHIATRIC: Appropriate mood and affect; insight and judgment normal. Pt update on day of discharge GES showed markedly delayed gastric emptying with the reasonable response initially to Reglan. Discussed with GI BURRITO MAKER, recommended erythromycin, small frequent meals, and outpatient follow up in 2 weeks. Hospital Course 21-year-old female with a history of depression, bipolar disorder, ulcer, who presented with abdominal pain //Acute abdominal pain -CT abdomen negative for appendicitis, cholecystitis. LFTs unremarkable. Left ovarian cyst. -Consulted GI given patient's reported history of ulcer. Started Protonix. GI performed EGD which showed esophagitis and food residue. = Gastric emptying study positive - erythromycin, small frequent meals -Outpatient GI follow up //Microcytic anemia secondary to iron deficiency Labs reviewed -Started ferrous sulfate //Left ovarian cyst Seen on abdominal CT -LMP was 2 weeks ago. This is likely ovulation. Patient reports having some pain with ovulation the past. This is left-sided however, does not explain her right-sided pain. -She can have a repeat ultrasound with her primary care or QUANTITATIVE MANAGER in several weeks to verify clearing. Suspect an ovulation cyst. //Occasional smoking. -Cessation counseling. //History of depression and bipolar disorder. -Appreciate psychiatry assistance. //Chronic intermittent left-sided chest pain. D-dimer negative. VQ scan negative. -No chest pain currently. Pt Condition on Discharge: Good Discharge Disposition: Discharge Home Discharge Time: > 30 minutes Discharge Instructions DIET: Follow Instructions for: As Tolerated, No Restrictions Additional Diet Instructions: Eat small, frequent meals(around 6 times) throughout the day, rather than fewer larger meals. Activities you can perform: Regular-No Restrictions Follow up Referrals: Gastroenterology - 2 Weeks with Alec Dalal MD PCP Follow-up - 1 Week New Medications: Pantoprazole (Protonix) 40 Mg Tab 40 MG PO DAILY Reflux #30 Ref 0 TAB Erythromycin Ethylsuccinate Liq (E.E.S. Liq) 200 Mg/5 Ml Susp 100 MG PO Q8HR gastroparesis Days 14 BOTTLE Ferrous Sulfate (Ferrous Sulfate) 325 Mg Tab 325 MG PO DAILY anemia #30 TAB Deacon Hernandez Feb 10, 2017 13:48 Thao Tolbert MD Feb 14, 2017 19:11
[2017-02-10] MEDS ORDERED: ERYT200S2 PO (14:04)
--- NOTE | 2017-02-10 14:09 | HHI.GIFU ---
Subjective Remarks Resting in bed without any complaints. Feeling better. No n/v today. Has not had anything to eat yet because she was npo for GES. + BM. Pain improved. ( MckeonLaurie Fam KENTRELL) Objective Vitals I&O Vital Signs Date Time Temp Pulse Resp B/P Pulse Ox O2 Delivery O2 Flow Rate FiO2 02/10/17 07:41 98.4 94 16 114/59 98 02/10/17 04:10 98.7 93 20 129/62 98 02/10/17 00:32 98.0 100 20 138/61 98 02/09/17 20:22 78 02/09/17 19:29 98.7 88 20 141/69 99 02/09/17 15:21 98.3 89 18 133/68 97 I/O 02/09/17 02/09/17 02/09/17 02/10/17 02/10/17 02/10/17 07:00 15:00 23:00 07:00 15:00 23:00 Intake Total 100 ml Balance 100 ml IV Total 100 ml Imaging Last Impressions Gastric Emptying Nuclear Medicine 02/10/17 0000 Signed Impressions: Service Date/Time: Friday, February 10, 2017 10:33 - CONCLUSION: Markedly delayed gastric emptying with the reasonable response initially to Reglan. Hakeem Cam MD FACR Abdomen/Pelvis CT 02/07/17 0005 Signed Impressions: Service Date/Time: Tuesday, February 07, 2017 01:18 - CONCLUSION: 1. No acute abnormality to explain the patient's right lower quadrant pain. In particular, the appendix is normal by CT criteria. 2. 3.5 cm cyst involving the adnexa. This is presumably ovarian in nature. Consideration should be made to a followup pelvic ultrasound following 2-3 menstrual cycles to document resolution. Ronan Swain Jr., MD Lung Scan-VQ Nuclear Medicine 02/07/17 0000 Signed Impressions: Service Date/Time: Tuesday, February 07, 2017 11:09 - CONCLUSION: Normal exam.. Soni Ward MD Chest X-Ray 02/07/17 0000 Signed Impressions: Service Date/Time: Tuesday, February 07, 2017 05:09 - CONCLUSION: Normal examination. Ronan Swain Jr., MD Physical Exam HEENT: Pupils round and reactive to light; normocephalic; atraumatic; no jaundice. Throat is clear. NECK: Neck is supple, no JVD, no lymphadenopathy. CHEST: CTA CARDIAC: RRR ABDOMEN: Soft, nondistended, nontender; no hepatosplenomegaly; bowel sounds are present in all four quadrants. EXTREMITIES: No clubbing, cyanosis, or edema. SKIN: Normal; no rash; no jaundice. ADOBE ARCHITECT: No focal deficits; alert and oriented times three. (MckeonLaurie Christinatroy CONNORP) Assessment and Plan Plan ASSESSMENT: - Abdominal pain. 2 day hx of abdominal pain. Began Wednesday with lower abdominal pain below umbilicus that then moved to RLQ, with associated n/v. Abdomen/Pelvis CT (02/07/17) 1. No acute abnormality to explain the patient's right lower quadrant pain. In particular, the appendix is normal by CT criteria. 2. 3.5 cm cyst involving the adnexa. This is presumably ovarian in nature. Consideration should be made to a followup pelvic ultrasound following 2-3 menstrual cycles to document resolution. Mild leukocytosis 12.9 yesterday. Will recheck. LFT normal. S/P EGD (02/09/17)----> 1. There was LA Class A esophagitis noted; multiple biopsies were performed 2. Normal endoscopy otherwise 3. Food residue in the gastric body and gastric fundus 4. Retroflexed views revealed no abnormalities. GES (02/10/17)----> Markedly delayed gastric emptying with the reasonable response initially to Reglan. Clinically much improved. Denies n/v at this time. Abdominal pain improved. D/W patient gastroparesis diet and will give trial of EES x 2 weeks with FU in 2 weeks. - N/V. Improved. Now only having after taking morphine. - GERD/Heartburn. PPI. - Dysmenorrhea, Menorrhagia, ovarian cyst. CT with 3.5 ovarian cyst. Recommends FU pelvic US 2-3 menstrual cycles to document resolution. PLAN: - Soft diet - Await pathology - EES 100mg po q8h, ac - D/W patient gastroparesis diet- small frequent meals, soft diet, chew food well, small bites. - Cont. PPI - Trial of EES 100mg po q8h ac x 2 weeks - Okay to d/c home from GI standpoint - FU BABAK 2 weeks - Pt seen and examined by Dr. Dalal and myself and this note is written on his behalf (Laurie Mckeon) Physician Comments Patient seen and examined Agree with above Continue with current supportive care Monitor labs Okay for discharge from a GI standpoint follow-up as outpatient We will sign off (Alec Dalal MD) Laurie Mckeon Feb 10, 2017 14:09 Alec Dalal MD Feb 10, 2017 14:32
[2017-02-10] MEDS ORDERED: ERYTHROMYCIN ETHYLSUCCINATE 200 MG/5 ML SUSP 100 ML BOTTLE PO SCH (15:00)
[2017-02-10 15:10] VITALS: BP 133/81; PULSE 110; RESP 18; TEMP 98.3; O2SAT 97
[2017-02-10] MEDS ORDERED: METOCLOPRAMIDE HCL 10 MG TAB PO SCH (16:00)
== END 2017-02-10 16:12 | disposition home or self-care (01) ==
LOC: NEPE 23:44 → NEDA 02-07 08:00 → NEPFCDU 02-07 12:45
PROVIDERS: ADMIT Hospitalist; ATTEND Hospitalist
DX: R10.31 Right lower quadrant pain (principal); R05 Cough; R07.9 Chest pain, unspecified; F31.9 Bipolar disorder, unspecified; F17.210 Nicotine dependence, cigarettes, uncomplicated; R00.0 Tachycardia, unspecified; N83.202 Unspecified ovarian cyst, left side; R11.2 Nausea with vomiting, unspecified; D72.829 Elevated white blood cell count, unspecified; N92.0 Excessive and frequent menstruation with regular cycle; N94.6 Dysmenorrhea, unspecified; F12.90 Cannabis use, unspecified, uncomplicated; F43.21 Adjustment disorder with depressed mood; K30 Functional dyspepsia; D50.9 Iron deficiency anemia, unspecified
CPT/HCPCS: 00740; 43239; 71020; 74177; 78264; 78582; 80048; 80053; 80307; 81001; 82570; 82728; 83540; 83550; 83605; 83690; 84300; 84703; 85025; 85379; 88305; 93005; 96361; 96374; 96375; 99285; A9540; A9541; A9567; C9113; G0378; J2270; J2405; J2765; J7030; Q9967; 76937

== ENCOUNTER 2017-07-28 03:00 | Inpatient (IN) | payer SELFPAY ==
[~2017-07-28] VITALS: Ht 165.1 cm; Wt 72.6 kg
[2017-07-28] VITALS (7 sets, daily range): BP systolic 106–133; BP diastolic 52–83; PULSE 79–130; RESP 16–20; TEMP 98–98.4; O2SAT 99–100
[~2017-07-28 03:00] MED LIST changes: -BENZ100 PO; -CELE10TA PO; +ERYT200S2 PO; +FERR325T PO; -PROM25TA5 PO; +PROT40TA PO; -TOPA50TA7 PO
[2017-07-28] MEDS ORDERED: SODIUM CHLOR 0.9% 1000 ML INJ 1,000 ML IV ONE (04:15)
[2017-07-28] MEDS ORDERED: DIAZEPAM 5 MG TAB PO ONE (04:15)
[2017-07-28 04:36] LABS: HEMATOCRIT 41.4 % (35.0-46.0); MEAN CELL VOLUME 80.7 FL (80.0-100.0); MEAN CORPUSCULAR HEMOGLOBIN 26.8 PG (27.0-34.0); MEAN CORPUSCULAR HGB CONC 33.2 % (32.0-36.0); PLATELET COUNT 277 TH/MM3 (150-450); RED BLOOD COUNT 5.13 MIL/MM3 (4.00-5.30); RED CELL DISTRIBUTION WIDTH 17.2 % (11.6-17.2); REVIEW FLAG FINAL; WHITE BLOOD COUNT 7.1 TH/MM3 (4.0-11.0)
[2017-07-28 04:55] LABS: ALT (GPT) 182 U/L (9-42); AST (GOT) 108 U/L (16-38); MAGNESIUM 2.3 MG/DL (1.5-2.5)
[2017-07-28 04:58] LABS: ALKALINE PHOSPHATASE 69 U/L (45-117); CREATINE KINASE 236 U/L (26-192); INDIRECT BILIRUBIN 0.4 MG/DL (0.0-0.8); TOTAL BILIRUBIN ADULT 0.5 MG/DL (0.2-1.0)
[2017-07-28 05:10] LABS: CKMB 0.5 NG/ML (0.5-3.6)
[2017-07-28] MEDS ORDERED: MORPHINE SULFATE 4 MG/ML INJ IV PUSH ONE (07:30)
[2017-07-28 07:59] LABS: BICARBONATE 27.9 MEQ/L (21.0-32.0)
[2017-07-28 08:05] LABS: POTASSIUM 2.6 MEQ/L (3.5-5.1)
[2017-07-28] MEDS ORDERED: POTASSIUM CHLORIDE 10 MEQ CONTROLLED RELEASE TAB PO ONE (08:15)
[2017-07-28] MEDS ORDERED: oxyCODONE/ACETAMINOPHEN 5 MG/325 MG TAB PO ONE (08:30)
--- NOTE | 2017-07-28 08:33 | PD ---
HPI Chief Complaint: Musculoskeletal Complaint Time Seen by Provider: 04:00 Travel History International Travel<30 days: No Contact w/Intl Traveler<30days: No Traveled to known affect area: No History of Present Illness HPI Patient is a 22-year-old female comes in complaining of painful contractions her hands. She has history of bulimia, and says she has been vomiting often. She says this is been going on for a month, but is worse today. She denies any injuries. She denies any chest pain or shortness of breath. Her heart rate is fast, but she says that she's been diagnosed with tachycardia, but they could not figure out why. PFSH Past Medical History Hx Anticoagulant Therapy: No ADHD: No Asthma: No Blood Disorders: No Bipolar Disorder: Yes Weight (Kg): 1 Depression: Yes Heart Rhythm Problems: No Cancer: No Cardiovascular Problems: No High Cholesterol: No Chemotherapy: No Chest Pain: Yes Congestive Heart Failure: No COPD: No Cerebrovascular Accident: No Diabetes: No Diminished Hearing: No Genitourinary: No Headaches: No Immune Disorder: No Musculoskeletal: No Neurologic: No Psychiatric: Yes (BULEMIA) Reproductive: No Respiratory: No Immunizations Current: No Migraines: No Radiation Therapy: No Seizures: No Sleep Apnea: No Thyroid Disease: No Ulcer: Yes Tetanus Vaccination: Unknown Influenza Vaccination: No ?: Not Past Surgical History Section: Yes Hysterectomy: No Other Surgery: No Social History Alcohol Use: No Tobacco Use: Yes Substance Use: No Allergies-Medications (Allergen,Severity, Reaction): Coded Allergies: aloe vera (Verified Allergy, Severe, Hives, 07/28/17) Penicillins (Verified Allergy, Unknown, 07/28/17) Reported Meds & Prescriptions Reported Meds & Active Scripts Active Review of Systems Except as stated in HPI: all other systems reviewed are Neg General / Constitutional: No: Fever, Chills Eyes: No: Blurred Vision HENT: No: Headaches, Lightheadedness Cardiovascular: No: Chest Pain or Discomfort, Palpitations Respiratory: No: Shortness of Breath Gastrointestinal: No: Nausea, Vomiting Musculoskeletal: Positive: Myalgias, Pain Skin: No Rash, No Change in Pigmentation Neurologic: No: Weakness, Dizziness Physical Exam Narrative GENERAL: Awake and alert, no acute distress. SKIN: Focused skin assessment warm/dry. HEAD: Atraumatic. Normocephalic. EYES: Pupils equal and round. No scleral icterus. ENT: Mucous membranes pink and moist. NECK: Trachea midline. No JVD. CARDIOVASCULAR: Tachycardia. No murmur appreciated. RESPIRATORY: No accessory muscle use. Clear to auscultation. Breath sounds equal bilaterally. GASTROINTESTINAL: Abdomen soft, non-tender, nondistended. MUSCULOSKELETAL: Hands held in contracture. No clubbing. No cyanosis. No edema. NEUROLOGICAL: Awake and alert. No obvious cranial nerve deficits. Motor grossly within normal limits. Normal speech. PSYCHIATRIC: Appropriate mood and affect; insight and judgment normal. Data Data Last Documented VS Vital Signs Date Time Temp Pulse Resp B/P (MAP) Pulse Ox O2 Delivery O2 Flow Rate FiO2 07/28/17 07:42 118 20 129/83 (98) 99 07/28/17 03:02 98.4 Room Air Orders Orders Basic Metabolic Panel (Bmp) (07/28/17 03:13) Iv Access Insert/Monitor (07/28/17 04:06) Cbc No Diff, Includes Plts (07/28/17 04:06) Creatine Kinase (Cpk) (07/28/17 04:06) Troponin I (07/28/17 04:06) Urinalysis - C+S If Indicated (07/28/17 04:06) Hepatic Functional Panel (07/28/17 04:06) Magnesium (Mg) (07/28/17 04:06) Phosphorus (Po4) (07/28/17 04:06) Ed Urine Pregnancytest Poc (07/28/17 04:06) Sodium Chlor 0.9% 1000 Ml Inj (Ns 1000 M (07/28/17 04:15) Diazepam (Valium) (07/28/17 04:15) CKMB (07/28/17 04:15) CKMB% (07/28/17 04:15) Morphine Inj (Morphine Inj) (07/28/17 07:30) Electrocardiogram (07/28/17 ) Potassium Chloride (Kcl) (07/28/17 08:15) Potassium Chlor 10 Meq Premix (Kcl 10 Me (07/28/17 08:15) Oxycodone-Acetamin 5-325 Mg (Percocet (07/28/17 08:30) Labs Laboratory Tests Test 07/28/17 04:15 White Blood Count 7.1 TH/MM3 Red Blood Count 5.13 MIL/MM3 Hemoglobin 13.7 GM/DL Hematocrit 41.4 % Mean Corpuscular Volume 80.7 FL Mean Corpuscular Hemoglobin 26.8 PG Mean Corpuscular Hemoglobin Concent 33.2 % Red Cell Distribution Width 17.2 % Platelet Count 277 TH/MM3 Mean Platelet Volume 9.6 FL Blood Urea Nitrogen 6 MG/DL Creatinine 1.08 MG/DL Random Glucose 112 MG/DL Calcium Level 8.9 MG/DL Sodium Level 136 MEQ/L Potassium Level 2.6 MEQ/L Chloride Level 92 MEQ/L Carbon Dioxide Level 27.9 MEQ/L Anion Gap 16 MEQ/L Estimat Glomerular Filtration Rate 65 ML/MIN Phosphorus Level 1.6 MG/DL Magnesium Level 2.3 MG/DL Total Bilirubin 0.5 MG/DL Direct Bilirubin 0.1 MG/DL Indirect Bilirubin 0.4 MG/DL Aspartate Amino Transf (AST/SGOT) 108 U/L Alanine Aminotransferase (ALT/SGPT) 182 U/L Alkaline Phosphatase 69 U/L Total Creatine Kinase 236 U/L Creatine Kinase MB 0.5 NG/ML Creatine Kinase MB % 0.2 % Troponin I LESS THAN 0.02 NG/ML Total Protein 6.8 GM/DL Albumin 4.2 GM/DL [facility] Medical Decision Making Medical Screen Exam Complete: Yes Emergency Medical Condition: Yes Medical Record Reviewed: Yes Interpretation(s) ECG shows sinus tachycardia at 129 with T-wave inversions in V4 through V6 as well as 1-3 and aVF. Differential Diagnosis Electrolyte abnormality versus dehydration versus ACS Narrative Course Patient is a 22-year-old female comes in complaining of pain in her hands. Exam shows hands to be in contracture. IV established, labs sent. Patient given IV fluids. Given pain medicine. Labs show a potassium of 2.6. Replacement ordered. Patient was placed in observation to assure resolution of her hypokalemia. Diagnosis Primary Impression: Hypokalemia Additional Impression: Tachycardia Admitting Information Admitting Physician Requests: Observation Condition: Stable Sudha Dan MD Jul 28, 2017 08:33
[2017-07-28] MEDS: POTASSIUM CHLOR 10 MEQ PREMIX 100 ML IV SCH ×3 (09:09→12:06)
[2017-07-28 09:45] LABS: BACTERIA, URINE RARE /hpf; BLOOD, URINE NEG (NEG); COMMENT (UR) CULT NOT INDICATED; CULTURE IF INDICATED CULT NOT INDICATED; GLUCOSE,URINE NEG (NEG); HYALINE CAST, URINE 1 /lpf (RARE); KETONE, URINE 80 mg/dL (NEG); NITRITE,URINE NEG (NEG); SQUAMOUS EPITHELIAL CELL URINE 2 /hpf (0-5); URINE COLOR LIGHT-YELLOW (YELLW/STRAW)
[2017-07-28] MEDS ORDERED: ONDANSETRON HCL 4 MG/2 ML VIAL IVP PRN (10:00)
[2017-07-28] MEDS ORDERED: LACTULOSE SYRUP 20 GM/30 ML CUP PO PRN (10:00)
[2017-07-28] MEDS ORDERED: MAGNESIUM HYDROXIDE SUSP 30 ML CUP PO PRN (10:00)
[2017-07-28] MEDS ORDERED: BISACODYL 10 MG SUPP RECTAL PRN (10:00)
[2017-07-28] MEDS ORDERED: SENNOSIDES 8.6 MG TAB PO PRN (10:00)
[2017-07-28] MEDS ORDERED: SODIUM CHLORIDE 0.9% FLUSH 10 ML FLUSH IV FLUSH PRN (10:00)
[2017-07-28] MEDS ORDERED: NALOXONE HCL 0.4 MG/ML AMP IV PRN (10:00)
--- NOTE | 2017-07-28 11:18 | HHI.HP ---
HPI Service Family Medicine Primary Care Physician No Primary Care Physician Admission Diagnosis hypokalemia Diagnoses: Chief Complaint: painful contractures in hands, hypokalemia International Travel<30 Days: No Contact w/Intl Traveler<30days: No Known Affected Area: No History of Present Illness Ms Galvan is a 22 YO female w/PMHx of gastroparesis 2/2 chronic bulimia who presents to the ED with painful contractures of bilateral hands and found to have hypokalemia to 2.6. Contractures of hands for several hours with right hand and left hand with pain, contracture and left arm spasms up to the shoulder. Associated sxs include cold fingers, toes and leg numbness. Pt states she last induced vomiting last night around midnight. Explains that she has lost 50 lbs in the last 4-5 months and has been eating less. States she sometimes has some chest pains, but not today, and describes being tachycardic at baseline. Denies SOB, palpitations, nausea, diarrhea, fever, cough, and DVT pain. (Vasquez Barajas MD R1) Review of Systems Constitutional: COMPLAINS OF: Weight loss, Change in appetite, DENIES: Fatigue , Fever, Chills, Dizziness Endocrine: COMPLAINS OF: Heat/cold intolerance (cold toes and fingers) Ears, nose, mouth, throat: DENIES: Throat pain Respiratory: DENIES: Shortness of breath Cardiovascular: DENIES: Chest pain, Palpitations Gastrointestinal: COMPLAINS OF: Abdominal pain, Constipation, Vomiting (self= induced), Anorexia, DENIES: Diarrhea, Nausea Genitourinary: COMPLAINS OF: Dysmenorrhea (describes long periods lasting 7-14 days), DENIES: Urinary frequency Musculoskeletal: COMPLAINS OF: Muscle aches (muslce contractures in hands and spasms in left arm up to shoulder) Integumentary: DENIES: Rash Neurologic: COMPLAINS OF: Headache, DENIES: Seizures (Vasquez Barajas MD R1) Past Family Social History Past Medical History Gastroparesis 2/2 bulimia Anemia likely 2/2 menses Past Surgical History denies Reported Medications takes OTC POtassium and Magnesium supplements Reported Meds & Active Scripts Active (Vasquez Barajas MD R1) Allergies: Coded Allergies: aloe vera (Verified Allergy, Severe, Hives, 07/28/17) Penicillins (Verified Allergy, Unknown, 07/28/17) Active Ordered Medications Current Medications Medications (Trade) Dose Ordered Sig/Randy Route Start Time Stop Time Status Last Admin (NS Flush) 2 ml UNSCH PRN IV FLUSH 07/28/17 10:00 (NS Flush) 2 ml BID IV FLUSH 07/28/17 21:00 (Zofran Inj) 4 mg Q6H PRN IVP 07/28/17 10:00 (Narcan Inj) 0.4 mg UNSCH PRN IV 07/28/17 10:00 (Rosaura-Colace) 1 tab BID PO 07/28/17 21:00 (Milk Of Magnesia Liq) 30 ml Q12H PRN PO 07/28/17 10:00 (Senokot) 17.2 mg Q12H PRN PO 07/28/17 10:00 (Dulcolax Supp) 10 mg DAILY PRN RECTAL 07/28/17 10:00 (Lactulose Liq) 30 ml DAILY PRN PO 07/28/17 10:00 Potassium Chloride/Sodium Chloride 1,000 ml @ 100 mls/hr Q10H IV 07/28/17 10:00 (KCl) 40 meq Q12HR PO 07/28/17 21:00 Family History Both father and mother with DM and HTN as well as eating disorders in family Social History smokes 1pp month no EtOH Occasionally takes a friend's Valium, but no other drugs (Vasquez Barajas MD R1) Physical Exam Vital Signs Vital Signs Date Time Temp Pulse Resp B/P (MAP) Pulse Ox O2 Delivery O2 Flow Rate FiO2 07/28/17 10:58 07/28/17 07:42 118 20 129/83 (98) 99 07/28/17 03:43 18 07/28/17 03:02 98.4 130 16 133/76 (95) 100 Room Air Physical Exam GENERAL: This is a well-nourished, well-developed patient, in no apparent distress. SKIN: No rashes or ecchymoses. Cool and dry. Bilateral lower abdominal striae present. No MCP/knuckle skin changes or thickening. HEAD: Atraumatic. Normocephalic. No temporal or scalp tenderness. EYES: Pupils equal round and reactive. Extraocular motions intact. No scleral icterus. No injection or drainage. ENT: Nose without bleeding, purulent drainage or septal hematoma. Airway patent. NECK: Trachea midline. No lymphadenopathy. Supple, nontender, no meningeal signs. CARDIOVASCULAR: Tachycardic in 110-120 range, regular rhythm without murmurs, gallops, or rubs. RESPIRATORY: Clear to auscultation. Breath sounds equal bilaterally. No wheezes , rales, or rhonchi. No increased WOB. GASTROINTESTINAL: Abdomen soft, non-tender, nondistended. No hepato-splenomegaly , or palpable masses. No guarding. No rebound. Normal BS. MUSCULOSKELETAL: Extremities without clubbing, cyanosis, or edema. No joint tenderness, effusion, or edema noted. No calf tenderness. Bilateral hands severely contracted. NEUROLOGICAL: Awake and alert. Cranial nerves II through XII intact. Motor and sensory grossly within normal limits. Normal speech. Laboratory Laboratory Tests Test 07/28/17 04:15 07/28/17 09:15 White Blood Count 7.1 Red Blood Count 5.13 Hemoglobin 13.7 Hematocrit 41.4 Mean Corpuscular Volume 80.7 Mean Corpuscular Hemoglobin 26.8 Mean Corpuscular Hemoglobin Concent 33.2 Red Cell Distribution Width 17.2 Platelet Count 277 Mean Platelet Volume 9.6 Blood Urea Nitrogen 6 Creatinine 1.08 Random Glucose 112 Calcium Level 8.9 Sodium Level 136 Potassium Level 2.6 Chloride Level 92 Carbon Dioxide Level 27.9 Anion Gap 16 Estimat Glomerular Filtration Rate 65 Phosphorus Level 1.6 Magnesium Level 2.3 Total Bilirubin 0.5 Direct Bilirubin 0.1 Indirect Bilirubin 0.4 Aspartate Amino Transf (AST/SGOT) 108 Alanine Aminotransferase (ALT/SGPT) 182 Alkaline Phosphatase 69 Total Creatine Kinase 236 Creatine Kinase MB 0.5 Creatine Kinase MB % 0.2 Troponin I LESS THAN 0.02 Total Protein 6.8 Albumin 4.2 Urine Color LIGHT-YELLOW Urine Turbidity CLEAR Urine pH 5.0 Urine Specific [place] 1.004 Urine Protein NEG Urine Glucose (UA) NEG Urine Ketones 80 Urine Occult Blood NEG Urine Nitrite NEG Urine Bilirubin NEG Urine Urobilinogen LESS THAN 2.0 Urine Leukocyte Esterase NEG Urine RBC LESS THAN 1 Urine WBC LESS THAN 1 Urine Squamous Epithelial Cells 2 Urine Bacteria RARE Urine Hyaline Casts 1 Microscopic Urinalysis Comment CULT NOT INDICATED (Vasquez Barajas MD R1) Result Diagram: 07/28/1741407/28/17414 [facility] V[facility]: No/Low Risk (score <= 1) (Vasquez Barajas MD R1) Assessment and Plan Assessment and Plan 22 YO female w/PMHx bulimia w/cyclic binge eating following by self-induced vomiting who takes OTC K+ and Mg2+ supplements to compensate presents with hypokalemia resulting in bilateral contractures of hands. Will also r/o arrhythmia. -K+ 2.6 on admission, Mag wnl, Phos 1.6, elevated LFTs, Cr 1.06 -CBC wnl -EKG sinus rhythm w/sinus arrhythmia and non-specific T-wave abnormality -Troponin <0.02 -Replete K+; Mag wnl -1L NS + 40 meq KCl IVF @ 100ml/hr -Re-check K+, electrolytes in PM -CMP in AM to include LFTs Code Status FULL Discussed Condition With Sandra Shaffer and Levy (Vasquez Barajas MD R1) Attending Attestation Patient seen and examined. Case reviewed and discussed with the resident team. Agree with plan of care as discussed with me and documented in the resident note. pt seen in ED with residents. agree with admission and aggressive treatment of severe electrolyte abnormalities (Vicky Shaffer MD) Problem List: (1) Hypokalemia ICD Codes: E87.6 - Hypokalemia Status: Acute Plan: Potassium 2.6 on admission--replete -KCl 40 meq q12h PO -KCl 40 meq IV q12h -Follow with BMP this afternoon and again at 6AM (2) Tachycardia ICD Codes: R00.0 - Tachycardia, unspecified Status: Acute Plan: Pt describes tachycardia at baseline; however, believe part of the problem is dehydration 2/2 bulimia eating disorder and vomiting -IVF w/KCl as per above -HR 79 @ 1220 this afternoon -Monitor vitals (3) Bulimia ICD Codes: F50.2 - Bulimia nervosa Status: Chronic Plan: Plan as per above. Pt describes having gotten counselling before, but is now uninsured (4) Gastroparesis ICD Codes: K31.84 - Gastroparesis Status: Chronic Plan: Pt describes having abdominal pain and gastroparesis 2/2 chronic bulimia ; however, on presentation she is not having abdominal pain--assessed as stable -Monitor (5) FEN/GI/PPx Status: Acute Plan: Diet: regular diet as tolerated GI PPx: none as pt denies s/s of reflux in spite of self-induced vomiting DVT PPx: SCDs; chemical ppx not indicated Electrolytes: repleting as per above Bowel: describes constipation as chronic--bowel prep PRN ordered (Vasquez Barajas MD R1) Vasquez Barajas MD R1 Jul 28, 2017 11:18 Vicky Shaffer MD Jul 29, 2017 14:03
[2017-07-28] MEDS: NS + KCL 40 MEQ INJ 1,000 ML IV SCH (13:33)
[2017-07-28 20:13] LABS: BICARBONATE 28.4 MEQ/L (21.0-32.0)
[2017-07-28] MEDS: DOCUSATE SODIUM 50 MG/SENNA 8.6 MG TAB PO SCH (20:16)
[2017-07-28] MEDS: POTASSIUM CHLORIDE 20 MEQ CONTROLLED RELEASE TAB PO SCH (20:16)
[2017-07-28] MEDS: SODIUM CHLORIDE 0.9% FLUSH 10 ML FLUSH IV FLUSH SCH (20:17)
[2017-07-28 20:20] LABS: POTASSIUM 2.6 MEQ/L (3.5-5.1)
--- NOTE | 2017-07-28 21:01 | EKG ---
Date Performed: 07/28/2017 Time Performed: 10:40:17 PTAGE: 22 years EKG: Sinus rhythm WITH MARKED SINUS ARRHYTHMIA NONSPECIFIC T-WAVE ABNORMALITY BORDERLINE ECG PREVIOUS TRACING : 07/28/2017 10.16 Compared to the previous tracing rate slower DOCTOR: Venice Almonte Interpretating Date/Time 07/28/2017 21:01:05
--- NOTE | 2017-07-28 21:16 | EKG ---
Date Performed: 07/28/2017 Time Performed: 03:56:33 PTAGE: 22 years EKG: SINUS TACHYCARDIA ST DEVIATION AND MODERATE T-WAVE ABNORMALITY, CONSIDER ISCHEMIA ABNORMAL ECG PREVIOUS TRACING : 07/23/2017 11.31 Compared to the previous tracing ST-T changes are present DOCTOR: Venice Almonte Interpretating Date/Time 07/28/2017 21:15:24
[2017-07-28] MEDS ORDERED: POTASSIUM PHOSPHATE INJ 30 MMOL in SODIUM CHLOR 0.9% 250 ML INJ 250 ML IV ONE (22:00)
[2017-07-29 00:02] VITALS: BP 111/71; PULSE 82; RESP 20; TEMP 98.4; O2SAT 97
[2017-07-29 03:58] VITALS: BP 126/76; PULSE 94; RESP 18; TEMP 97.9; O2SAT 99
[2017-07-29] MEDS: NS + KCL 40 MEQ INJ 1,000 ML IV SCH (04:22)
[2017-07-29 04:43] LABS: BASOPHIL % 0.7 % (0.0-2.0); EOSINOPHIL # 0.2 TH/MM3 (0-0.4); EOSINOPHIL % 5.3 % (0.0-4.0); HEMATOCRIT 36.9 % (35.0-46.0); HEMO FLAGS DIFF FINAL; LYMPHOCYTE # 1.7 TH/MM3 (1.0-4.8); MEAN CELL VOLUME 81.8 FL (80.0-100.0); MEAN CORPUSCULAR HEMOGLOBIN 26.5 PG (27.0-34.0); MEAN CORPUSCULAR HGB CONC 32.4 % (32.0-36.0); PLATELET COUNT 199 TH/MM3 (150-450); RED BLOOD COUNT 4.51 MIL/MM3 (4.00-5.30); RED CELL DISTRIBUTION WIDTH 18.1 % (11.6-17.2); WHITE BLOOD COUNT 4.4 TH/MM3 (4.0-11.0)
[2017-07-29 05:09] LABS: ALT (GPT) 147 U/L (9-42); ANION GAP 10 MEQ/L (5-15); AST (GOT) 101 U/L (16-38); BICARBONATE 27.1 MEQ/L (21.0-32.0); BLOOD UREA NITROGEN 4 MG/DL (7-18); CHLORIDE 106 MEQ/L (98-107); GLOMERULAR FILTRATION RATE 118 ML/MIN (>89); SODIUM (NA) 143 MEQ/L (136-145)
[2017-07-29 05:11] LABS: ALKALINE PHOSPHATASE 64 U/L (45-117); TOTAL BILIRUBIN ADULT 0.3 MG/DL (0.2-1.0)
[2017-07-29] MEDS ORDERED: POTASSIUM CHLORIDE 10 MEQ CONTROLLED RELEASE TAB PO ONE (07:00)
[2017-07-29 08:19] VITALS: BP 128/72; PULSE 95; RESP 16; TEMP 98.3; O2SAT 100
[2017-07-29] MEDS: DOCUSATE SODIUM 50 MG/SENNA 8.6 MG TAB PO SCH ×2 (10:51→20:15)
[2017-07-29] MEDS: SODIUM CHLORIDE 0.9% FLUSH 10 ML FLUSH IV FLUSH SCH ×2 (10:51→20:15)
[2017-07-29] MEDS: POTASSIUM CHLORIDE 20 MEQ CONTROLLED RELEASE TAB PO SCH ×2 (10:52→20:16)
[2017-07-29] MEDS ORDERED: ZOFR4TAB3 SL (11:34)
[2017-07-29 12:10] VITALS: BP 130/88; PULSE 80; RESP 17; TEMP 98.7; O2SAT 99
--- NOTE | 2017-07-29 14:02 | HHI.HP ---
[facility] Service Family Medicine Primary Care Physician No Primary Care Physician Admission Diagnosis hypokalemia Diagnoses: (1) Hypokalemia Diagnosis: Principal (2) Tachycardia Diagnosis: Secondary (3) Bulimia Diagnosis: Principal (4) Gastroparesis Diagnosis: Principal (5) FEN/GI/PPx Diagnosis: Principal International Travel<30 Days: No Contact w/Intl Traveler<30days: No Known Affected Area: No History of Present Illness Ms Galvan is a 22 yo female w/PMHx of gastroparesis and previous low K and mag 2/2 chronic bulimia who presented to the ED with painful contractures of bilateral hands and was found to have hypokalemia to 2.6. She had spasms of hands for several hours with right hand and left hand with pain, contracture and left arm spasms up to the shoulder. Associated sxs include cold fingers, toes and leg numbness as well as some perioral numbness at times. Pt states she last induced vomiting around midnight 2 nights ago. Explains that she has lost 50 lbs in the last 4-5 months and has been eating less. States she sometimes has some chest pains, but not today, and describes being tachycardic at baseline. Denies SOB, palpitations, nausea, diarrhea, fever, cough, and DVT pain. She was being treated for her bulimia which includes binging on a regular basis , with some associated purging as well as some laxative abuse. She has been treated in the past when she had insurance with meds and counselling but has not had any treatment for some time. She was encouraged as well as her mother was told today that the best option was to call [facility] as [facility] have outpt Drs and technology administrator and can get her on joint terminal attack controller treatment. She asked about inpatient Psychiatry and Ms Galvan's boyfriends mother evidently works in inpatient Psych here at [place] and will enquire as to what the best course of action is. She may benefit from inpatient Psychiatry at some point. Hopefully, she will respond outpt as she states she did well earlier with this approach. Today she has no spasms or pain in her arms or hands and feels back to normal. She requests D/C if possible. Will check her electrolytes and be sure she is back to normal or very close to it at noon today. Review of Systems Psychiatric: COMPLAINS OF: Anxiety Other Constitutional: COMPLAINS OF: Weight loss, Change in appetite, DENIES: Fatigue , Fever, Chills, Dizziness Endocrine: COMPLAINS OF: Heat/cold intolerance (cold toes and fingers) Ears, nose, mouth, throat: DENIES: Throat pain Respiratory: DENIES: Shortness of breath Cardiovascular: DENIES: Chest pain, Palpitations Gastrointestinal: COMPLAINS OF: Abdominal pain, Constipation, Vomiting (self= induced), Anorexia, DENIES: Diarrhea, Nausea Genitourinary: COMPLAINS OF: Dysmenorrhea (describes long periods lasting 7-14 days), DENIES: Urinary frequency Musculoskeletal: COMPLAINS OF: Muscle aches (muslce contractures in hands and spasms in left arm up to shoulder) Integumentary: DENIES: Rash Neurologic: COMPLAINS OF: Headache, DENIES: Seizures Past Family Social History Past Medical History Gastroparesis 2/2 bulimia Anemia likely 2/2 menses Past Surgical History denies Allergies: Coded Allergies: aloe vera (Verified Allergy, Severe, Hives, 07/28/17) Penicillins (Verified Allergy, Unknown, 07/28/17) Family History Both father and mother with DM and HTN as well as eating disorders in family Social History smokes 1pp month no EtOH Occasionally takes a friend's Valium, but no other drugs Physical Exam Vital Signs Vital Signs Date Time Temp Pulse Resp B/P (MAP) Pulse Ox O2 Delivery O2 Flow Rate FiO2 07/29/17 12:10 98.7 80 17 130/88 (102) 99 07/29/17 08:19 98.3 95 16 128/72 (90) 100 07/29/17 03:58 97.9 94 18 126/76 (93) 99 07/29/17 00:02 98.4 82 20 111/71 (84) 97 07/28/17 22:16 94 07/28/17 19:31 98.2 85 18 113/65 (81) 99 07/28/17 17:26 98.1 94 16 106/52 (70) 99 Physical Exam GENERAL: This is a well-developed patient, in no apparent distress this am feeling back to normal. SKIN: No rashes or ecchymoses. Cool and dry. Bilateral lower abdominal striae present that look like stretch yeager from weight gain and loss. No MCP/knuckle skin changes or thickening. HEAD: Atraumatic. Normocephalic. EYES: Pupils equal round and reactive. Extraocular motions intact. No scleral icterus. No injection or drainage. ENT: Nose without bleeding, purulent drainage or septal hematoma. Airway patent. NECK: Trachea midline. No lymphadenopathy. Supple, nontender, no meningeal signs. CARDIOVASCULAR: Tachycardic in 110-120 range initially, better today. regular rhythm without murmurs, gallops, or rubs. RESPIRATORY: Clear to auscultation. Breath sounds equal bilaterally. No wheezes , rales, or rhonchi. No increased WOB. GASTROINTESTINAL: Abdomen soft, non-tender, nondistended. No hepato-splenomegaly , or palpable masses. No guarding. No rebound. Normal BS. MUSCULOSKELETAL: Extremities without clubbing, cyanosis, or edema. No joint tenderness, effusion, or edema noted. No calf tenderness. Bilateral hands severely contracted initially but fine today. NEUROLOGICAL: Awake and alert. Cranial nerves II through XII intact. Motor and sensory grossly within normal limits. Normal speech. Laboratory Laboratory Tests Test 07/28/17 19:08 07/29/17 03:53 07/29/17 13:00 Blood Urea Nitrogen 4 4 Creatinine 0.55 0.64 Random Glucose 81 122 Calcium Level 8.5 8.3 Phosphorus Level 1.8 4.9 Sodium Level 141 143 Potassium Level 2.6 3.0 Chloride Level 103 106 Carbon Dioxide Level 28.4 27.1 Anion Gap 10 10 Estimat Glomerular Filtration Rate 141 118 White Blood Count 4.4 Red Blood Count 4.51 Hemoglobin 12.0 Hematocrit 36.9 Mean Corpuscular Volume 81.8 Mean Corpuscular Hemoglobin 26.5 Mean Corpuscular Hemoglobin Concent 32.4 Red Cell Distribution Width 18.1 Platelet Count 199 Mean Platelet Volume 9.8 Neutrophils (%) (Auto) 45.0 Lymphocytes (%) (Auto) 39.0 Monocytes (%) (Auto) 10.0 Eosinophils (%) (Auto) 5.3 Basophils (%) (Auto) 0.7 Neutrophils # (Auto) 2.0 Lymphocytes # (Auto) 1.7 Monocytes # (Auto) 0.4 Eosinophils # (Auto) 0.2 Basophils # (Auto) 0.0 CBC Comment DIFF FINAL Differential Comment Total Protein 5.4 Albumin 3.1 Alkaline Phosphatase 64 Aspartate Amino Transf (AST/SGOT) 101 Alanine Aminotransferase (ALT/SGPT) 147 Total Bilirubin 0.3 Result Diagram: 07/29/17 0353 07/29/17 0353 Caprini VTE Risk Assessment Caprini VTE Risk Assessment: No/Low Risk (score <= 1) Caprini Risk Assessment Model Point Value = 1 Point Value = 2 Point Value = 3 Point Value = 5 Age 41-60 Minor surgery BMI > 25 kg/m2 Swollen legs Varicose veins or History of unexplained or recurrent spontaneous Oral contraceptives or hormone replacement Sepsis (< 1 month) Serious lung disease, including pneumonia (< 1 month) Abnormal pulmonary function Acute myocardial infarction Congestive heart failure (< 1 month) History of inflammatory bowel disease Medical patient at bed rest Age 61-74 Arthroscopic surgery Major open surgery (> 45 min) Laparoscopic surgery (> 45 min) Malignancy Confined to bed (> 72 hours) Immobilizing plaster cast Central venous access Age >= 75 History of VTE Family history of VTE Factor V Leiden Prothrombin [id number] Lupus anticoagulant Anticardiolipin antibodies Elevated serum homocysteine Heparin-induced thrombocytopenia Other congenital or acquired thrombophilia Stroke (< 1 month) Elective arthroplasty Hip, pelvis, or leg fracture Acute spinal cord injury (< 1 month) Prophylaxis Regimen Total Risk Factor Score Risk Level Prophylaxis Regimen 0-1 Low Early ambulation 2 Moderate Order ONE of the following: *Sequential Compression Device (SCD) *Heparin 5000 units SQ BID 3-4 Higher Order ONE of the following medications: *Heparin 5000 units SQ TID *Enoxaparin/Lovenox 40 mg SQ daily (WT < 150 kg, CrCl > 30 mL/min) *Enoxaparin/Lovenox 30 mg SQ daily (WT < 150 kg, CrCl > 10-29 mL/min) *Enoxaparin/Lovenox 30 mg SQ BID (WT < 150 kg, CrCl > 30 mL/min) AND/OR *Sequential Compression Device (SCD) 5 or more Highest Order ONE of the following medications: *Heparin 5000 units SQ TID (Preferred with Epidurals) *Enoxaparin/Lovenox 40 mg SQ daily (WT < 150 kg, CrCl > 30 mL/min) *Enoxaparin/Lovenox 30 mg SQ daily (WT < 150 kg, CrCl > 10-29 mL/min) *Enoxaparin/Lovenox 30 mg SQ BID (WT < 150 kg, CrCl > 30 mL/min) AND *Sequential Compression Device (SCD) Assessment and Plan Assessment and Plan 22 YO female w/PMHx bulimia w/cyclic binge eating following by self-induced vomiting who sometimes but not recently takes OTC K+ and Mg2+ supplements to compensate presented with hypokalemia resulting in bilateral spasms of hands. Will also r/o arrhythmia. -K+ 2.6 on admission, Mag wnl, Phos 1.6, elevated LFTs, Cr 1.06 -CBC wnl -EKG sinus rhythm w/sinus arrhythmia and non-specific T-wave abnormality -Troponin <0.02 -Replete K+; Mag wnl -1L NS + 40 meq KCl IVF @ 100ml/hr, can heplock -Re-check K+, electrolytes today -CMP in AM to include LFTs Problem List: (1) Hypokalemia ICD Codes: E87.6 - Hypokalemia Status: Acute Plan: Potassium 2.6 on admission--replete -KCl 40 meq q12h PO -KCl 40 meq IV q12h -Follow with BMP this afternoon and again at 6AM (2) Bulimia ICD Codes: F50.2 - Bulimia nervosa Status: Chronic Plan: Plan as per above. Pt describes having gotten counselling before, but is now uninsured [facility] as [facility]. If worse or necessary can return here but doubt she qualifies for inpt now (3) Tachycardia ICD Codes: R00.0 - Tachycardia, unspecified Status: Acute Plan: Pt describes tachycardia at baseline; however, believe part of the problem is dehydration 2/2 bulimia eating disorder and vomiting -IVF w/KCl as per above overnight, better now -HR 79 @ 1220 this afternoon -Monitor vitals (4) Gastroparesis ICD Codes: K31.84 - Gastroparesis Status: Chronic Plan: Pt describes having abdominal pain and gastroparesis 2/2 chronic bulimia ; however, on presentation she is not having abdominal pain--assessed as stable -Monitor can take zofran prn (5) FEN/GI/PPx Status: Acute Plan: Diet: regular diet as tolerated GI PPx: none as pt denies s/s of reflux in spite of self-induced vomiting DVT PPx: SCDs; chemical ppx not indicated, she is ambulating to the bathroom Electrolytes: repleting as per above Bowel: describes constipation as chronic--bowel prep PRN ordered. likely worse with her eating disorder. she takes laxatives at times possibly to purge Physician Certification 2 Midnight Certification Type: Admission for Inpatient Services Order for Inpatient Services The services are ordered in accordance with Medicare regulations or non- Medicare payer requirements, as applicable. In the case of services not specified as inpatient-only, they are appropriately provided as inpatient services in accordance with the 2-midnight benchmark. Estimated LOS (days): 2 2-3 days is the estimated time the patient will need to remain in the hospital, assuming treatment plan goals are met and no additional complications. Post-Hospital Plan: Home Notes: she met inpatient criteria with her severe symptomatic electrolyte abnormalities but may improve very quickly as she is young and has good renal fxVicky Schaefer MD Jul 29, 2017 14:02
[2017-07-29] MEDS ORDERED: POTASSIUM CHLORIDE 25 MEQ EFFERVESCENT TAB NG SCH (14:15)
[2017-07-29 14:43] VITALS: BP 111/66; PULSE 83; RESP 17; TEMP 98.4; O2SAT 98
[2017-07-29] MEDS ORDERED: POTASSIUM CHLORIDE 25 MEQ EFFERVESCENT TAB PO ONE (17:00)
[2017-07-29 20:06] VITALS: BP 131/68; PULSE 90; RESP 20; TEMP 98.1; O2SAT 98
[2017-07-29] MEDS: MELATONIN 5 MG TAB PO PRN (20:16)
[2017-07-30] VITALS (10 sets, daily range): BP systolic 102–133; BP diastolic 53–79; PULSE 64–89; RESP 16–20; TEMP 98.2–98.4; O2SAT 97–100
[2017-07-30] MEDS: POTASSIUM CHLORIDE 20 MEQ CONTROLLED RELEASE TAB PO SCH (09:19)
[2017-07-30] MEDS: DOCUSATE SODIUM 50 MG/SENNA 8.6 MG TAB PO SCH ×2 (09:19→20:09)
[2017-07-30] MEDS: SODIUM CHLORIDE 0.9% FLUSH 10 ML FLUSH IV FLUSH SCH ×2 (09:19→20:09)
[2017-07-30 11:09] LABS: ALKALINE PHOSPHATASE 61 U/L (45-117); ALT (GPT) 141 U/L (9-42); ANION GAP 8 MEQ/L (5-15); AST (GOT) 80 U/L (16-38); BICARBONATE 27.2 MEQ/L (21.0-32.0); BLOOD UREA NITROGEN 2 MG/DL (7-18); CHLORIDE 108 MEQ/L (98-107); GLOMERULAR FILTRATION RATE 118 ML/MIN (>89); MAGNESIUM 2.1 MG/DL (1.5-2.5); SODIUM (NA) 143 MEQ/L (136-145); TOTAL BILIRUBIN ADULT 0.2 MG/DL (0.2-1.0)
[2017-07-30 11:16] LABS: POTASSIUM 2.8 MEQ/L (3.5-5.1)
[2017-07-30] MEDS ORDERED: POTASSIUM CHLORIDE 25 MEQ EFFERVESCENT TAB NG SCH ×2 (12:00→20:00)
--- NOTE | 2017-07-30 12:18 | HHI.FPPN ---
Subjective Remarks Patient reports that overnight she had a couple hours of right thumb cramping, which resolved. She otherwise denies any complaints. Afebrile vital signs stable overnight. (Malcolm Lockett MD R2) Objective Vitals Vital Signs Date Time Temp Pulse Resp B/P (MAP) Pulse Ox O2 Delivery O2 Flow Rate FiO2 07/30/17 11:35 98.3 89 20 132/75 (94) 100 07/30/17 08:00 77 07/30/17 07:30 98.3 84 20 102/53 (69) 99 07/30/17 04:29 98.4 79 18 120/73 (89) 99 07/30/17 03:41 81 07/30/17 00:00 98.4 79 18 120/73 (89) 99 07/29/17 20:06 98.1 90 20 131/68 (89) 98 07/29/17 14:43 98.4 83 17 111/66 (81) 98 07/29/17 12:10 98.7 80 17 130/88 (102) 99 I/O 07/29/17 07/29/17 07/29/17 07/30/17 07/30/17 07/30/17 07:00 15:00 23:00 07:00 15:00 23:00 Intake Total 250 ml Output Total 250 ml Balance 0 ml Intake Oral 250 ml Output Urine Total 250 ml # Voids 4 (Malcolm Lockett MD R2) Result Diagram: 07/29/17 0353 07/30/17 0955 Objective Remarks GENERAL: This is a well-developed patient, in no apparent distress this am feeling back to normal. SKIN: No rashes or ecchymoses. Cool and dry. Bilateral lower abdominal striae present that look like stretch yeager from weight gain and loss. No MCP/knuckle skin changes or thickening. HEAD: Atraumatic. Normocephalic. EYES: Pupils equal round and reactive. Extraocular motions intact. No scleral icterus. No injection or drainage. ENT: Nose without bleeding, purulent drainage or septal hematoma. Airway patent. NECK: Trachea midline. No lymphadenopathy. Supple, nontender, no meningeal signs. CARDIOVASCULAR: Regular rate and regular rhythm without murmurs, gallops, or rubs. RESPIRATORY: Clear to auscultation. Breath sounds equal bilaterally. No wheezes , rales, or rhonchi. No increased WOB. GASTROINTESTINAL: Abdomen soft, non-tender, nondistended. No hepato-splenomegaly , or palpable masses. No guarding. No rebound. Normal BS. MUSCULOSKELETAL: No upper or lower extremity contractures. Extremities without clubbing, cyanosis, or edema. No joint tenderness, effusion, or edema noted. No calf tenderness. NEUROLOGICAL: Awake and alert. Cranial nerves II through XII grossly intact. Motor and sensory grossly within normal limits. Normal speech. (Malcolm Lockett MD R2) A/P Assessment and Plan 22 YO female w/PMHx bulimia w/cyclic binge eating following by self-induced vomiting who sometimes but not recently takes OTC K+ and Mg2+ supplements to compensate presented with hypokalemia resulting in bilateral spasms of hands. Will admit to treat hypokalemia. -K+ 2.6 on admission, Mag wnl, Phos 1.6, elevated LFTs, Cr 1.06 -CBC wnl -EKG sinus rhythm w/sinus arrhythmia and non-specific T-wave abnormality -Troponin <0.02 -Replete K+ PO and IV; Mag wnl -Re-check K+, electrolytes daily -CMP in AM to include LFTs, which have been elevated Discharge Planning Pending resolution of hypokalemia. (Malcolm Lockett MD R2) Attending Attestation Patient seen and examined. Case reviewed and discussed with the resident team. Agree with plan of care as discussed with me and documented in the resident note. unfortunately, she will not take iv K and pills can be spit out. there is no direct evidence of this but she has had no reported vomiting or diarrhea so she should be increasing in her K. will try liquid K as she has gastroparesis and liquids are absorbed better (Vicky Shaffer MD) Problem List: (1) Hypokalemia ICD Codes: E87.6 - Hypokalemia Status: Acute Plan: Potassium trended: 2.6, 3.0, 2.8 -KCl 40 meq q6h PO -KCl IV continuous -BMP qd (2) Bulimia ICD Codes: F50.2 - Bulimia nervosa Status: Chronic Plan: Plan as above. Pt describes having gotten counselling before, but is now uninsured. [facility]. If worse or necessary, can return here but doubt she qualifies for inpt now. -psych consult (3) Gastroparesis ICD Codes: K31.84 - Gastroparesis Status: Chronic Plan: Pt describes having abdominal pain and gastroparesis 2/2 chronic bulimia ; however, on presentation she is not having abdominal pain--assessed as stable -Monitor qd -zofran prn (4) FEN/GI/PPx Status: Acute Plan: Diet: regular diet as tolerated GI PPx: none as pt denies s/s of reflux in spite of self-induced vomiting DVT PPx: SCDs; chemical ppx not indicated, she is ambulating to the bathroom Electrolytes: repleting as above Bowel: describes constipation as chronic-- anticonstipation medications PRN ordered. likely worse with her eating disorder. she takes laxatives at times possibly to purge (5) Tachycardia ICD Codes: R00.0 - Tachycardia, unspecified Status: Resolved Plan: Pt describes tachycardia at baseline; however, believe part of the problem is dehydration 2/2 bulimia eating disorder and vomiting. No tachycardia overnight, so now resolved. -IVF w/ KCl as above -Monitor vitals (Malcolm Lockett MD R2) Malcolm Lockett MD R2 Jul 30, 2017 12:18 Vicky Shaffer MD Jul 31, 2017 15:03
[2017-07-30] MEDS: POTASSIUM CHLORIDE 10 MEQ CONTROLLED RELEASE TAB PO SCH ×2 (13:00→17:07)
[2017-07-30] MEDS: NS + KCL 40 MEQ INJ 1,000 ML IV SCH (13:00)
[2017-07-30] MEDS ORDERED: SODIUM CHLOR 0.9% 1000 ML INJ 1,000 ML IV SCH (18:00)
[2017-07-30] MEDS ORDERED: POTASSIUM CHLORIDE 25 MEQ EFFERVESCENT TAB PO SCH (18:00)
[2017-07-30] MEDS: MELATONIN 5 MG TAB PO PRN (20:09)
[2017-07-31 03:25] VITALS: BP 131/63; PULSE 91; RESP 16; TEMP 97.9; O2SAT 97
[2017-07-31] MEDS: POTASSIUM CHLORIDE 25 MEQ EFFERVESCENT TAB PO SCH ×9 (04:00→22:46)
[2017-07-31 05:43] VITALS: BP 128/65; PULSE 88; RESP 16; TEMP 98.2; O2SAT 99
[2017-07-31 08:00] VITALS: BP 126/68; PULSE 75; RESP 19; TEMP 97.8; O2SAT 99
[2017-07-31] MEDS ORDERED: HYDROCORTISONE 1% CREAM 30 GM TOPICAL PRN (09:00)
[2017-07-31] MEDS: DOCUSATE SODIUM 50 MG/SENNA 8.6 MG TAB PO SCH ×2 (09:08→19:59)
[2017-07-31] MEDS: SODIUM CHLORIDE 0.9% FLUSH 10 ML FLUSH IV FLUSH SCH ×2 (09:09→20:00)
[2017-07-31 09:11] LABS: BICARBONATE 25.3 MEQ/L (21.0-32.0)
[2017-07-31 10:09] LABS: CALCIUM-PROTEIN CORRECTED 8.5 MG/DL (8.5-10.1)
--- NOTE | 2017-07-31 11:04 | HHI.FPPN ---
Subjective Remarks Ms Galvan feels basically back to normal today. She is not having any muscle spasms and has a negative ROS otherwise. She refuses any iv fluids with K in them. She had a liter of saline with 40 meq of K and complained that it burned so much she was unable to tolerate it at all even in a very low rate. she was on pills but her K did not rise. some pts spit their pills out but there is no evidence that she did that. she is taking her K liquid now and her K is increasing. she does have gastroparesis and that can impair absorption of solids so liquid K is best for her. She wants to go home if possible today. Her K is up to 3.0 so we will increase her po to q 2 hours and recheck this afternoon. she can go home as long as she continues to improve. Objective Vitals Vital Signs Date Time Temp Pulse Resp B/P (MAP) Pulse Ox O2 Delivery O2 Flow Rate FiO2 07/31/17 08:00 97.8 75 19 126/68 (87) 99 07/31/17 05:43 98.2 88 16 128/65 (86) 99 07/31/17 03:25 97.9 91 16 131/63 (85) 97 07/30/17 23:22 64 07/30/17 23:08 98.2 89 18 133/79 (97) 97 07/30/17 19:25 98.2 85 16 130/70 (90) 98 07/30/17 17:50 132/71 (91) 07/30/17 11:35 98.3 89 20 132/75 (94) 100 I/O 07/30/17 07/30/17 07/30/17 07/31/17 07/31/17 07/31/17 07:00 15:00 23:00 07:00 15:00 23:00 Intake Total 1050 ml 20 ml Output Total 650 ml Balance 400 ml 20 ml Intake Oral 1050 ml IV Total 20 ml Output Urine Total 650 ml # Voids 2 Result Diagram: 07/29/17 0353 07/31/17 0810 Objective Remarks GENERAL: This is a well-developed patient, in no apparent distress this am feeling back to normal. SKIN: No rashes or ecchymoses. Cool and dry. Bilateral lower abdominal striae present that look like stretch yeager from weight gain and loss. No MCP/knuckle skin changes or thickening. HEAD: Atraumatic. Normocephalic. EYES: Pupils equal round and reactive. Extraocular motions intact. No scleral icterus. No injection or drainage. ENT: Nose without bleeding, purulent drainage or septal hematoma. Airway patent. NECK: Trachea midline. No lymphadenopathy. Supple, nontender, no meningeal signs. CARDIOVASCULAR: Regular rate and regular rhythm without murmurs, gallops, or rubs. exam per Dr Karl bañuelos RESPIRATORY: Clear to auscultation. Breath sounds equal bilaterally. No wheezes , rales, or rhonchi. No increased WOB. GASTROINTESTINAL: Abdomen soft, non-tender, nondistended. No hepato-splenomegaly , or palpable masses. No guarding. No rebound. Normal BS. MUSCULOSKELETAL: No upper or lower extremity contractures. Extremities without clubbing, cyanosis, or edema. No joint tenderness, effusion, or edema noted. No calf tenderness. NEUROLOGICAL: Awake and alert. Cranial nerves II through XII grossly intact. Motor and sensory grossly within normal limits. Normal speech. 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 Will admit to treat hypokalemia. -K+ 2.6 on admission, Mag wnl, Phos 1.6, elevated LFTs, Cr 1.06 -CBC wnl -EKG sinus rhythm w/sinus arrhythmia and non-specific T-wave abnormality -Troponin <0.02 -Replete K+ PO and IV; Mag wnl -Re-check K+, electrolytes daily -CMP in AM to include LFTs, which have been elevated Discharge Planning Pending resolution of hypokalemia. Changed her to po liquid K and she is responding finally. she will be able to leave with po liquid K if her K continues to rise as she is asymptomatic Problem List: (1) Hypokalemia ICD Codes: E87.6 - Hypokalemia Status: Acute Plan: Potassium trended: 2.6, 3.0, 2.8 -KCl 40 meq q6h PO -KCl IV continuous -BMP qd (2) Bulimia ICD Codes: F50.2 - Bulimia nervosa Status: Chronic Plan: Plan as above. Pt describes having gotten counselling before, but is now uninsured. [facility]. If worse or necessary, can return here but doubt she qualifies for inpt now. -psych consult (3) Gastroparesis ICD Codes: K31.84 - Gastroparesis Status: Chronic Plan: Pt describes having abdominal pain and gastroparesis 2/2 chronic bulimia ; however, on presentation she is not having abdominal pain--assessed as stable -Monitor qd -zofran prn can consider reglan as that worked well for her gastroparesis but there are side effects in such a young pt (4) FEN/GI/PPx Status: Acute Plan: Diet: regular diet as tolerated GI PPx: none as pt denies s/s of reflux in spite of self-induced vomiting DVT PPx: SCDs; chemical ppx not indicated, she is ambulating to the bathroom Electrolytes: repleting as above Bowel: describes constipation as chronic-- anticonstipation medications PRN ordered. likely worse with her eating disorder. she takes laxatives at times possibly to purge (5) Tachycardia ICD Codes: R00.0 - Tachycardia, unspecified Status: Resolved Plan: Pt describes tachycardia at baseline; however, believe part of the problem is dehydration 2/2 bulimia eating disorder and vomiting. No tachycardia overnight, so now resolved. -IVF w/ KCl as above -Monitor vitals Vicky Shaffer MD Jul 31, 2017 11:04
--- NOTE | 2017-07-31 11:19 | PD.PSY.CON ---
Provisional Diagnosis Admission Date Jul 29, 2017 at 12:31 Wag[place] I. Bulimia nervosa, bipolar disorder Wagener II. Deferred Wagener III. Hypokalemia Wagener IV. Unemployed, noncompliant with psychotropics and psychiatric recommendations Wagener V. 57 History of Present Illness Service Psychiatry Consult Requested By Medical team Reason for Consult Bulimia nervosa Primary Care Physician No Primary Care Physician HPI The patient is a 22 year old woman, domiciled with her boyfriend in [facility], unemployed at this moment, with psychiatric history of bipolar disorder, bulimia nervosa, depression, 1 previous psychiatric hospitalization in [facility], she has been seeing here at [facility] in the ER under [place] act due to suicidal ideation, [place] act lifted by Ms. Kvng Dr. medication review, 1 previous suicide attempt, no outpatient care, medical history of gastroparesis and previous low K and mag 2/2 chronic bulimia who presented to the ED with painful contractures of bilateral hands and was found to have hypokalemia to 2.6. She had spasms of hands for several hours with right hand and left hand with pain, contracture and left arm spasms up to the shoulder. Associated sxs include cold fingers, toes and leg numbness as well as some perioral numbness at times. Patient is seen for psychiatric evaluation today. Patient is calm, cooperative and very pleasant. Patient states that she feels much better now, denies any distress, any symptom associated with hypokalemia. Patient reports good mood, she denies depressive symptoms, such as anhedonia, helplessness, hopelessness, poor appetite, poor sleep at night, poor concentration, suicidal and homicidal ideation. She denies visual and auditory hallucinations. Patient denies symptoms of paranoia, flight of ideas, increased self-esteem, ideas of reference. Patient is oriented 3, no focal patient of consciousness, no attention deficit present. Patient does report that she suffers of bulimia for many years now. She has been relapsing and remitting, "depending of levels anxiety and self image". He her worst days she can induce vomit 2 or 3 times per day. But she can go many days without doing it. She states she last induced vomiting around midnight 2 nights ago. Explains that she has lost 50 lbs in the last 4-5 months and has been eating less. She was being treated for her bulimia which includes binging on a regular basis, with some associated purging as well as some laxative abuse. She has been treated in the past when she had insurance with meds and counselling but has not had any treatment for some time. She was encouraged as well as her mother was told today that the best option was to call [facility] as they have outpt Drs and knot bumper and can get [facility]. She asked about inpatient Psychiatry and Ms Galvan's boyfriends mother evidently works in inpatient Psych here at [facility] and will enquire as to what the best course of action is. She seems to be motivated to look for outpatient care. She denies the use of illicit drugs and alcohol. Review of Systems Constitutional: DENIES: Diaphoretic episodes, Fatigue, Fever, Weight gain, Weight loss, Chills, Dizziness, Change in appetite, Night Sweats Endocrine: DENIES: Abnorml menstrual pattern, Heat/cold intolerance, Polydipsia , Polyuria, Polyphagia Eyes: DENIES: Blurred vision, Diplopia, Eye inflammation, Eye pain, Vision loss , Photosensitivity, Double Vision Ears, nose, mouth, throat: DENIES: Tinnitus, Hearing loss, Vertigo, Nasal discharge, Oral lesions, Throat pain, Hoarseness, Ear Pain, Running Nose, Epistaxis, Sinus Pain, Toothache, Odynophagia Respiratory: DENIES: Apneas, Cough, Snoring, Wheezing, Hemoptysis, Sputum production, Shortness of breath Cardiovascular: DENIES: Chest pain, Palpitations, Syncope, Dyspnea on Exertion , PND, Lower Extremity Edema, Orthopnea, Claudication Gastrointestinal: DENIES: Abdominal pain, Black stools, Bloody stools, Constipation, Diarrhea, Nausea, Vomiting, Difficulty Swallowing, Anorexia Musculoskeletal: DENIES: Joint pain, Muscle aches, Stiffness, Joint Swelling, Back pain, Neck pain Hematologic/lymphatic: DENIES: Bruising, Lymphadenopathy Immunologic/allergic: DENIES: Eczema, Urticaria Neurologic: DENIES: Abnormal gait, Headache, Localized weakness, Paresthesias, Seizures, Speech Problems, Tremor, Poor Balance Psychiatric: DENIES: Anxiety, Confusion, Mood changes, Depression, Hallucinations, Agitation, Suicidal Ideation, Homicidal Ideation, Delusions Past Family Social History Coded Allergies: aloe vera (Verified Allergy, Severe, Hives, 07/28/17) Penicillins (Verified Allergy, Unknown, 07/28/17) Active Scripts Ondansetron Odt (Zofran Odt) 4 Mg Tab, 4 MG SL Q6HR Y for Nausea/Vomiting, #30 TAB 0 Refills Prov:Malcolm Lockett MD R2 07/29/17 Discontinued Scripts Erythromycin Ethylsuccinate Liq (E.E.S. Liq) 200 Mg/5 Ml Susp, 100 MG PO Q8HR for gastroparesis for 14 Days, BOTTLE Prov:Deacon Hernandez 02/10/17 Pantoprazole (Protonix) 40 Mg Tab, 40 MG PO DAILY for Reflux, #30 TAB 0 Refills Prov:Deacon Hernandez 02/10/17 Ferrous Sulfate (Ferrous Sulfate) 325 Mg Tab, 325 MG PO DAILY for anemia, #30 TAB Prov:Deacon Hernandez 02/10/17 Current Medications Medications (Trade) Dose Ordered Sig/Randy Route Start Time Stop Time Status Last Admin (NS Flush) 2 ml UNSCH PRN IV FLUSH 07/28/17 10:00 (NS Flush) 2 ml BID IV FLUSH 07/28/17 21:00 07/31/17 09:09 (Zofran Inj) 4 mg Q6H PRN IVP 07/28/17 10:00 (Narcan Inj) 0.4 mg UNSCH PRN IV 07/28/17 10:00 (Rosaura-Colace) 1 tab BID PO 07/28/17 21:00 07/31/17 09:08 (Milk Of Magnesia Liq) 30 ml Q12H PRN PO 07/28/17 10:00 (Senokot) 17.2 mg Q12H PRN PO 07/28/17 10:00 (Dulcolax Supp) 10 mg DAILY PRN RECTAL 07/28/17 10:00 (Lactulose Liq) 30 ml DAILY PRN PO 07/28/17 10:00 (Melatonin) 5 mg HS PRN PO 07/29/17 21:00 07/30/17 20:09 (Hydrocortisone 1% Cream) 1 applic ONCE PRN TOPICAL 07/31/17 09:00 07/31/17 23:59 (K-Lyte Cl Eff) 25 meq Q2HR PO 07/31/17 12:00 (PROzac) 10 mg DAILY PO 07/31/17 11:00 UNV Family History Mother has bipolar disorder Social History This was born and raised in [place], she lives in [facility] with her boyfriend, she is unemployed at this moment, her highest level of education is 11th grade Patient's Strengths (min. 2) Good insight of her bulimic condition, verbal communication Physical Exam No tremors, no scars around fingers, no nail damage, no EPS, no withdrawal, no psychomotor retardation or agitation present Vital Signs Vital Signs Date Time Temp Pulse Resp B/P (MAP) Pulse Ox O2 Delivery O2 Flow Rate FiO2 07/31/17 08:00 97.8 75 19 126/68 (87) 99 07/28/17 03:02 Room Air Lab Results Test 07/31/17 08:10 Blood Urea Nitrogen 2 MG/DL Creatinine 0.54 MG/DL Random Glucose 79 MG/DL Total Protein 4.9 GM/DL Calcium Level 7.3 MG/DL Sodium Level 145 MEQ/L Potassium Level 3.0 MEQ/L Chloride Level 111 MEQ/L Carbon Dioxide Level 25.3 MEQ/L Anion Gap 9 MEQ/L Estimat Glomerular Filtration Rate 144 ML/MIN Protein Corrected Calcium 8.5 MG/DL Mental Status Examination Appearance woman, overweight, age appearing, calm, cooperative and pleasant Speech: Unremarkable Orientation: x3 Memory: Unremarkable Thought Process: Logical Thought Content: Unremarkable Language Adequately grammar, appropriate sentences use, good diction Fund of Knowledge Adequate for level of education Hallucination Type: None Attention and Concentration: Good Suicidal Ideation: No Previous Suicide Attempts: Yes Homicidal Ideation: No Previous Homicide Attempts: No Insight: Good Judgment: WNL Affect: Good Mood: Appropriate Motor Activity: Normal gait Assessment & Plan Problem List: (1) Bulimia ICD Codes: F50.2 - Bulimia nervosa Status: Chronic Assessment & Plan: On psychiatric evaluation today the patient is calm, cooperative and pleasant. There is no significant evidence or reported symptomatology of depressive symptoms, anxiety, psychosis or macrial. The patient denies suicidal and homicidal ideation, the patient denies visual and auditory hallucinations. Patient is logical, coherent and relevant. She is future oriented with identified protective factors. There is not criteria for inpatient psychiatry admission at this moment. She does report chronic history of self induced vomits, binge and purging, which is the etiology of her current hypokalemia. Patient has been remitting and relapsing of this condition through the years, he has been psychiatric care in the past but stopped due to lack of insurance. Patient seems to be motivated, especially after this hospitalization, to look for outpatient psychiatric care in [facility]. Boyfriend is also very involved. I have provided white education about bulimic condition to the patient. Also breath supportive psychotherapy, motivation and hope. I would recommend to start the patient on fluoxetine 10 mg to decrease impulses/ and compulsions of self inducing vomiting and binge eating. Continue medical care as needed. Consult appreciated. (2) Bipolar 1 disorder, depressed, full remission ICD Codes: F31.76 - Bipolar disorder, in full remission, most recent episode depressed Status: Chronic Assessment & Plan Estimated LOS: days Jae Mejia MD Jul 31, 2017 11:19
[2017-07-31] MEDS: FLUoxetine HCL 10 MG CAP PO SCH (11:47)
[2017-07-31 12:00] VITALS: BP 140/79; PULSE 70; RESP 18; TEMP 97.2; O2SAT 98
[2017-07-31] MEDS ORDERED: FLUO10CA4 PO (13:37)
[2017-07-31] MEDS ORDERED: KLYTECL PO (13:37)
[2017-07-31 16:00] VITALS: BP 147/87; PULSE 89; RESP 19; TEMP 97.9; O2SAT 96
[2017-07-31 20:10] VITALS: BP 143/81; PULSE 65; RESP 17; TEMP 97.7; O2SAT 100
[2017-08-01] MEDS: POTASSIUM CHLORIDE 25 MEQ EFFERVESCENT TAB PO SCH ×6 (00:08→08:27)
[2017-08-01 00:12] VITALS: BP 134/80; PULSE 80; RESP 14; TEMP 97.9; O2SAT 98
[2017-08-01 08:25] VITALS: BP 141/89; PULSE 102; RESP 17; TEMP 98.1
[2017-08-01] MEDS: FLUoxetine HCL 10 MG CAP PO SCH (08:25)
[2017-08-01] MEDS: DOCUSATE SODIUM 50 MG/SENNA 8.6 MG TAB PO SCH (08:25)
[2017-08-01] MEDS: SODIUM CHLORIDE 0.9% FLUSH 10 ML FLUSH IV FLUSH SCH (08:25)
--- NOTE | 2017-08-01 09:03 | HHI.DCPOC ---
Discharge Care Plan Diagnosis: (1) Bulimia (2) Hypokalemia Goals to Promote Your Health * To prevent worsening of your condition and complications, please follow up with a therapist. Please take medications as prescribed. * To maintain your health at the optimal level, please eat a well balanced diet and exercise. Directions to Meet Your Goals Take your medications as prescribed Follow your dietary instruction Follow activity as directed Keep your appointments as scheduled Take your immunizations and boosters as scheduled If your symptoms worsen call your PCP, if no PCP go to Urgent Care Center or Emergency Room Smoking is Dangerous to Your Health. Avoid second hand smoke Call the 24-hour hour crisis hotline for domestic abuse at Malcolm Lockett MD R2 Aug 01, 2017 09:03
--- NOTE | 2017-08-01 09:58 | HHI.FPPN ---
Subjective Remarks Per nurse report, patient had some concerns about the cost of her medications. Discussed this with case management. Her Prozac should be $4 at [facility]. The total cost of her medications upon discharge is around $35. Patient reports that overnight, she still had some hand cramping, but has been able to fully move her hands. The hand cramping does not affect her functioning. Patient complains of an excruciating headache with associated nausea, for which patient has already received Zofran. Patient reports that she is a history of migraines for which she usually takes Tylenol, which normally helps. Ordered Tylenol. Received a page at 11:08 AM that patient is having persistent bilateral hand cramping and has had 3-5 loose bowel movements. Per nurse report, patient is not finishing the effervescent liquid potassium. Patient did not tolerate IV potassium and has refused it; her IV also infiltrated and she is a tough stick. Converted back to oral pills. Nurse reports that she does check after patient takes medication and she is not cheeking medications. (Malcolm Lockett MD R2) Objective Vitals Vital Signs Date Time Temp Pulse Resp B/P (MAP) Pulse Ox O2 Delivery O2 Flow Rate FiO2 08/01/17 08:25 98.1 102 17 141/89 (106) 08/01/17 00:12 97.9 80 14 134/80 (98) 98 07/31/17 20:10 97.7 65 17 143/81 (101) 100 07/31/17 16:00 97.9 89 19 147/87 (107) 96 07/31/17 12:00 97.2 70 18 140/79 (99) 98 I/O 07/31/17 07/31/17 07/31/17 08/01/17 08/01/17 08/01/17 07:00 15:00 23:00 07:00 15:00 23:00 Intake Total 480 ml 480 ml 240 ml Balance 480 ml 480 ml 240 ml Intake Oral 480 ml 480 ml 240 ml # Voids 2 4 9 4 # Bowel Movements 0 2 1 (Malcolm Lockett MD R2) Result Diagram: 07/29/17 0353 07/31/17 2777 Objective Remarks GENERAL: This is a well-developed patient, in no apparent distress. SKIN: No rashes or ecchymoses. Cool and dry. Bilateral lower abdominal striae present that look like stretch yeager from weight gain and loss. No MCP/knuckle skin changes or thickening. HEAD: Atraumatic. Normocephalic. EYES: Pupils equal round and reactive. Extraocular motions intact. No scleral icterus. No injection or drainage. ENT: Nose without bleeding, purulent drainage or septal hematoma. Airway patent. NECK: Trachea midline. No lymphadenopathy. Supple, nontender, no meningeal signs. CARDIOVASCULAR: Regular rate and regular rhythm without murmurs, gallops, or rubs. RESPIRATORY: Clear to auscultation. Breath sounds equal bilaterally. No wheezes , rales, or rhonchi. No increased WOB. GASTROINTESTINAL: Abdomen soft, non-tender, nondistended. No hepato-splenomegaly , or palpable masses. No guarding. No rebound. Normal BS. MUSCULOSKELETAL: No upper or lower extremity contractures. Extremities without clubbing, cyanosis, or edema. No joint tenderness, effusion, or edema noted. No calf tenderness. NEUROLOGICAL: Awake and alert. Cranial nerves II through XII grossly intact. Motor and sensory grossly within normal limits. Normal speech. 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 Will admit to treat hypokalemia. -K+ 2.6 on admission, Mag wnl, Phos 1.6, elevated LFTs, Cr 1.06 -CBC wnl -EKG sinus rhythm w/sinus arrhythmia and non-specific T-wave abnormality -Troponin <0.02 -Replete K+ PO and IV; Mag wnl -Re-check K+, electrolytes daily -CMP in AM to include LFTs, which have been elevated Discharge Planning Pending resolution of hypokalemia. Changed her to po liquid K and she is responding finally. she will be able to leave with po liquid K if her K continues to rise as her symptoms have improved and she is functional (Malcolm Lockett MD R2) Attending Attestation Patient seen and examined. Case reviewed and discussed with the resident team. Agree with plan of care as discussed with me and documented in the resident note. Ms Galvan was very reluctant to leave the hospital unless her K was perfect. However, I explained to her that normally people did not get symptomatic at a K of 3.2. It would be nice to be able to raise her K more but all the different methods of increasing her K have been refused or not able to be completed because Ms Galvan reported being unable to tolerate her K. She kept saying her iv K was burning and intolerable. Her iv was 1 liter of NS with 40 meq of K run at 20 cc per hours effectively giving less than 1 meq per hour but she absolutely wanted this stopped. per pt her iv was able to be flushed easily with pure saline with no problems at all but any iv potassium was completely forbidden by the pt. Next, pills were tried, however, despite more than 100 meq that were said to be taken po, her K went down. It is unclear how that could happen. little direct observation of her taking the pills could be done with busy nurses. also she has a long history of induced vomiting though this was not directly observed in the hospital. It remains unclear in a pt who denies vomiting/diarrhea how her potassium could drop with literally hundreds of milliequivalents. liquid K was prescribed as at least some would hopefully be absorbed. however, Ms Galvan would not drink more than a small sip when her nurse was in the room. she was "too full" to finish her liquid K so her nurse had to stop bringing it as the last dose would just be sitting there when she brought the next dose. I explained that sometimes people just had to eat K rich foods if every method of K supplementation in the hospital was refused. A full list of all the potassium rich foods from [facility] that was 4 pages long was given to her so that she could increase the K in her diet. I also explained that the diuretics she was taking at home as well as occasional laxatives plus vomiting could be fatal and that she needed to stop all of them. (Vicky Shaffer MD) Problem List: (1) Hypokalemia ICD Codes: E87.6 - Hypokalemia Status: Acute Plan: Potassium trended: 2.6, 3.0, 2.8, 3.1, 3.2 -KCl liquid 40 meq q6h PO -IV infiltrated -BMP qd (2) Bulimia ICD Codes: F50.2 - Bulimia nervosa Status: Chronic Plan: Plan as above. Pt describes having gotten counselling before, but is now uninsured. Recommended [facility] as an out[facility]. -psych consult started fluoxetine (3) Gastroparesis ICD Codes: K31.84 - Gastroparesis Status: Chronic Plan: Pt describes having abdominal pain and gastroparesis 2/2 chronic bulimia ; however, on presentation she is not having abdominal pain--assessed as stable -Monitor qd -zofran prn can consider reglan as that worked well for her gastroparesis but there are side effects in such a young pt (4) FEN/GI/PPx Status: Acute Plan: Diet: regular diet as tolerated GI PPx: none as pt denies s/s of reflux in spite of self-induced vomiting DVT PPx: SCDs; chemical ppx not indicated, she is ambulating to the bathroom Electrolytes: repleting as above Bowel: describes constipation as chronic-- anticonstipation medications PRN ordered. likely worse with her eating disorder. she takes laxatives at times possibly to purge (Malcolm Lockett MD R2) Malcolm Lockett MD R2 Aug 01, 2017 09:58 Vicky Shaffer MD Aug 02, 2017 13:21
[2017-08-01] MEDS ORDERED: ACETAMINOPHEN 500 MG CPLT PO PRN (10:00)
[2017-08-01] MEDS ORDERED: POTASSIUM CHLORIDE 10 MEQ CONTROLLED RELEASE TAB PO SCH ×2 (12:00→15:00)
[2017-08-01 16:00] VITALS: BP 110/61; PULSE 61; RESP 18; TEMP 96.9; O2SAT 96
--- NOTE | 2017-08-01 18:58 | HHI.PR ---
Addendum to Inpatient Note Addendum Reason: Additional Documentation Additional Information Between 4 PM to 5 PM, spent 43 minutes [id number] with patient and her boyfriend addressing all of their questions and concerns prior to discharge. Malcolm Lockett MD R2 Aug 01, 2017 18:58
--- NOTE | 2017-08-01 19:00 | HHI.DS ---
Discharge Summary Admission Date Jul 29, 2017 at 12:31 Discharge Date: Aug 01, 2017 Admitting Diagnosis hypokalemia (1) Hypokalemia Diagnosis: Principal Plan: Potassium trended: 2.6, 3.0, 2.8, 3.1 -KCl 40 meq q4h PO -IV infiltrated -BMP qd ICD Codes: E87.6 - Hypokalemia Status: Acute (2) Bulimia Diagnosis: Principal Plan: Plan as above. Pt describes having gotten counselling before, but is now uninsured. Recommended [facility]. -psych consult started fluoxetine ICD Codes: F50.2 - Bulimia nervosa Status: Chronic (3) Gastroparesis Diagnosis: Secondary Plan: Pt describes having abdominal pain and gastroparesis 2/2 chronic bulimia ; however, on presentation she is not having abdominal pain--assessed as stable -Monitor qd -zofran prn can consider reglan as that worked well for her gastroparesis but there are side effects in such a young pt ICD Codes: K31.84 - Gastroparesis Status: Chronic (4) FEN/GI/PPx Diagnosis: Secondary Plan: Diet: regular diet as tolerated GI PPx: none as pt denies s/s of reflux in spite of self-induced vomiting DVT PPx: SCDs; chemical ppx not indicated, she is ambulating to the bathroom Electrolytes: repleting as above Bowel: describes constipation as chronic-- anticonstipation medications PRN ordered. likely worse with her eating disorder. she takes laxatives at times possibly to purge Status: Acute Brief History Ms Galvan is a 22 yo female w/PMHx of gastroparesis and previous low K and mag 2/2 chronic bulimia who presented to the ED with painful contractures of bilateral hands and was found to have hypokalemia to 2.6. She had spasms of hands for several hours with right hand and left hand with pain, contracture and left arm spasms up to the shoulder. Associated sxs include cold fingers, toes and leg numbness as well as some perioral numbness at times. Pt states she last induced vomiting around midnight 2 nights ago. Explains that she has lost 50 lbs in the last 4-5 months and has been eating less. States she sometimes has some chest pains, but not today, and describes being tachycardic at baseline. Denies SOB, palpitations, nausea, diarrhea, fever, cough, and DVT pain. She was being treated for her bulimia which includes binging on a regular basis , with some associated purging as well as some laxative abuse. She has been treated in the past when she had insurance with meds and counselling but has not had any treatment for some time. She was encouraged as well as her mother was told today that the best option was to call [facility] as they have outpt Drs and traffic observer and can get her on shelter treatment. She asked about inpatient Psychiatry and Ms Galvan's boyfriends mother evidently works in inpatient Psych here at [facility] and will enquire as to what the best course of action is. She may benefit from inpatient Psychiatry at some point. Hopefully, she will respond outpt as she states she did well earlier with this approach. Today she has no spasms or pain in her arms or hands and feels back to normal. She requests D/C if possible. Will check her electrolytes and be sure she is back to normal or very close to it at noon today. CBC/BMP: 07/29/17 0353 08/01/17 1230 Significant Findings Laboratory Tests Test 07/30/17 09:55 07/31/17 08:10 07/31/17 18:37 08/01/17 12:30 Blood Urea Nitrogen 2 MG/DL (7-18) 2 MG/DL (7-18) Total Protein 5.1 GM/DL (6.4-8.2) 4.9 GM/DL (6.4-8.2) Albumin 2.7 GM/DL (3.4-5.0) Calcium Level 7.8 MG/DL (8.5-10.1) 7.3 MG/DL (8.5-10.1) Aspartate Amino Transf (AST/SGOT) 80 U/L (16-38) Alanine Aminotransferase (ALT/SGPT) 141 U/L (9-42) Potassium Level 2.8 MEQ/L (3.5-5.1) 3.0 MEQ/L (3.5-5.1) 3.1 MEQ/L (3.5-5.1) 3.2 MEQ/L (3.5-5.1) Chloride Level 108 MEQ/L (98-107) 111 MEQ/L (98-107) PE at Discharge GENERAL: This is a well-developed patient, in no apparent distress this am feeling back to normal. SKIN: No rashes or ecchymoses. Cool and dry. Bilateral lower abdominal striae present that look like stretch yeager from weight gain and loss. No MCP/knuckle skin changes or thickening. HEAD: Atraumatic. Normocephalic. EYES: Pupils equal round and reactive. Extraocular motions intact. No scleral icterus. No injection or drainage. ENT: Nose without bleeding, purulent drainage or septal hematoma. Airway patent. NECK: Trachea midline. No lymphadenopathy. Supple, nontender, no meningeal signs. CARDIOVASCULAR: Regular rate and regular rhythm without murmurs, gallops, or rubs. exam per Dr Karl bañuelos RESPIRATORY: Clear to auscultation. Breath sounds equal bilaterally. No wheezes , rales, or rhonchi. No increased WOB. GASTROINTESTINAL: Abdomen soft, non-tender, nondistended. No hepato-splenomegaly , or palpable masses. No guarding. No rebound. Normal BS. MUSCULOSKELETAL: No upper or lower extremity contractures. Extremities without clubbing, cyanosis, or edema. No joint tenderness, effusion, or edema noted. No calf tenderness. NEUROLOGICAL: Awake and alert. Cranial nerves II through XII grossly intact. Motor and sensory grossly within normal limits. Normal speech. Pt Condition on Discharge: Good Discharge Disposition: Discharge Home Discharge Instructions DIET: Follow Instructions for: As Tolerated, No Restrictions Activities you can perform: Regular-No Restrictions Follow up Referrals: PCP Follow-up - 1 Week Psychiatry Adult - 2-3 Days @ [facility] New Orders: POTASSIUM, SERUM (K) - 1 Week New Medications: Ondansetron Odt (Zofran Odt) 4 Mg Tab 4 MG SL Q6HR PRN for Nausea/Vomiting, #30 TAB 0 Refills Fluoxetine (Pmdd) (Fluoxetine (Pmdd)) 10 Mg Cap 10 MG PO DAILY for 30 Days, #30 CAP Potassium Bicarb-Chloride Effervescent (Effervescent Potassium Chloride 25 Meq) 25 Meq Tab 25 MEQ PO TID for 5 Days, #20 TAB Malcolm Lockett MD R2 Aug 01, 2017 19:00
--- NOTE | 2017-08-02 06:27 | HHI.DS ---
Discharge Summary Admission Date Jul 29, 2017 at 12:31 Discharge Date: Aug 01, 2017 Admitting Diagnosis hypokalemia (1) Hypokalemia Diagnosis: Principal Plan: Potassium trended: 2.6, 3.0, 2.8, 3.1, 3.2 -KCl liquid 40 meq q6h PO -IV infiltrated -BMP qd ICD Codes: E87.6 - Hypokalemia Status: Acute (2) Bulimia Diagnosis: Principal Plan: Plan as above. Pt describes having gotten counselling before, but is now uninsured. Recommended [facility] an [facility]. -psych consult started fluoxetine ICD Codes: F50.2 - Bulimia nervosa Status: Chronic (3) Gastroparesis Diagnosis: Secondary Plan: Pt describes having abdominal pain and gastroparesis 2/2 chronic bulimia ; however, on presentation she is not having abdominal pain--assessed as stable -Monitor qd -zofran prn can consider reglan as that worked well for her gastroparesis but there are side effects in such a young pt ICD Codes: K31.84 - Gastroparesis Status: Chronic (4) FEN/GI/PPx Diagnosis: Secondary Plan: Diet: regular diet as tolerated GI PPx: none as pt denies s/s of reflux in spite of self-induced vomiting DVT PPx: SCDs; chemical ppx not indicated, she is ambulating to the bathroom Electrolytes: repleting as above Bowel: describes constipation as chronic-- anticonstipation medications PRN ordered. likely worse with her eating disorder. she takes laxatives at times possibly to purge Status: Acute Consultants Psychiatry Brief History Ms Galvan is a 22 yo female w/PMHx of gastroparesis and previous low K and mag 2/2 chronic bulimia who presented to the ED with painful contractures of bilateral hands and was found to have hypokalemia to 2.6. She had spasms of hands for several hours with right hand and left hand with pain, contracture and left arm spasms up to the shoulder. Associated sxs include cold fingers, toes and leg numbness as well as some perioral numbness at times. Pt states she last induced vomiting around midnight 2 nights ago. Explains that she has lost 50 lbs in the last 4-5 months and has been eating less. States she sometimes has some chest pains, but not today, and describes being tachycardic at baseline. Denies SOB, palpitations, nausea, diarrhea, fever, cough, and DVT pain. She was being treated for her bulimia which includes binging on a regular basis , with some associated purging as well as some laxative abuse. She has been treated in the past when she had insurance with meds and counselling but has not had any treatment for some time. She was encouraged as well as her mother was told today that the best option was to call [facility] as they have outpt Drs and lieutenant general and can get her on fpc treatment. She asked about inpatient Psychiatry and Ms Galvan's boyfriends mother evidently works in inpatient Psych here at [place] and will enquire as to what the best course of action is. She may benefit from inpatient Psychiatry at some point. Hopefully, she will respond outpt as she states she did well earlier with this approach. Today she has no spasms or pain in her arms or hands and feels back to normal. She requests D/C if possible. Will check her electrolytes and be sure she is back to normal or very close to it at noon today. CBC/BMP: 07/29/17 0353 08/01/17 1230 Significant Findings Laboratory Tests Test 07/30/17 09:55 07/31/17 08:10 07/31/17 18:37 08/01/17 12:30 Blood Urea Nitrogen 2 MG/DL (7-18) 2 MG/DL (7-18) Total Protein 5.1 GM/DL (6.4-8.2) 4.9 GM/DL (6.4-8.2) Albumin 2.7 GM/DL (3.4-5.0) Calcium Level 7.8 MG/DL (8.5-10.1) 7.3 MG/DL (8.5-10.1) Aspartate Amino Transf (AST/SGOT) 80 U/L (16-38) Alanine Aminotransferase (ALT/SGPT) 141 U/L (9-42) Potassium Level 2.8 MEQ/L (3.5-5.1) 3.0 MEQ/L (3.5-5.1) 3.1 MEQ/L (3.5-5.1) 3.2 MEQ/L (3.5-5.1) Chloride Level 108 MEQ/L (98-107) 111 MEQ/L (98-107) PE at Discharge GENERAL: This is a well-developed patient, in no apparent distress. SKIN: No rashes or ecchymoses. Cool and dry. Bilateral lower abdominal striae present that look like stretch yeager from weight gain and loss. No MCP/knuckle skin changes or thickening. HEAD: Atraumatic. Normocephalic. EYES: Pupils equal round and reactive. Extraocular motions intact. No scleral icterus. No injection or drainage. ENT: Nose without bleeding, purulent drainage or septal hematoma. Airway patent. NECK: Trachea midline. No lymphadenopathy. Supple, nontender, no meningeal signs. CARDIOVASCULAR: Regular rate and regular rhythm without murmurs, gallops, or rubs. RESPIRATORY: Clear to auscultation. Breath sounds equal bilaterally. No wheezes , rales, or rhonchi. No increased WOB. GASTROINTESTINAL: Abdomen soft, non-tender, nondistended. No hepato-splenomegaly , or palpable masses. No guarding. No rebound. Normal BS. MUSCULOSKELETAL: No upper or lower extremity contractures. Extremities without clubbing, cyanosis, or edema. No joint tenderness, effusion, or edema noted. No calf tenderness. NEUROLOGICAL: Awake and alert. Cranial nerves II through XII grossly intact. Motor and sensory grossly within normal limits. Normal speech. Hospital Course Patient was admitted with hypokalemia in the context of bulimia. Patient was treated with IV and oral potassium. Patient reported burning with potassium infusion, so she did not tolerate the IV potassium well, her IV infiltrated, she was tough stick for the nurses, and she subsequently refused IV potassium. This made her hypokalemia more difficult to treat. Furthermore, per nurse report , she did not finish the potassium liquid drinks. However, with continued potassium supplementation, patient's painful hand cramps resolved and potassium weston above 3. Psychiatry was consulted and started patient on fluoxetine. Instructed patient to follow-up with [facility] for bulimia. Discharged patient with potassium supplements and instructions to repeat potassium lab in 1 week. Pt Condition on Discharge: Good Discharge Disposition: Discharge Home Discharge Instructions DIET: Follow Instructions for: As Tolerated, No Restrictions Activities you can perform: Regular-No Restrictions Follow up Referrals: PCP Follow-up - 1 Week Psychiatry Adult - 2-3 Days @ [facility] New Orders: POTASSIUM, SERUM (K) - 1 Week New Medications: Ondansetron Odt (Zofran Odt) 4 Mg Tab 4 MG SL Q6HR PRN for Nausea/Vomiting, #30 TAB 0 Refills Fluoxetine (Pmdd) (Fluoxetine (Pmdd)) 10 Mg Cap 10 MG PO DAILY for 30 Days, #30 CAP Potassium Bicarb-Chloride Effervescent (Effervescent Potassium Chloride 25 Meq) 25 Meq Tab 25 MEQ PO TID for 5 Days, #20 TAB Malcolm Lockett MD R2 Aug 02, 2017 06:27
== END 2017-08-01 18:21 | disposition home or self-care (01) | DRG 641 ==
LOC: NEPE 03:00 → NEDA 09:02 → NEPHCDU 10:57 → OBSVTOIN 07-29 12:31 → N06A 07-31 05:33
PROVIDERS: ADMIT Family Medicine; ATTEND Family Medicine
DX: E87.6 Hypokalemia (principal); E86.0 Dehydration; F50.2 Bulimia nervosa; R00.0 Tachycardia, unspecified; Z72.0 Tobacco use; K59.00 Constipation, unspecified; K31.84 Gastroparesis; F55.2 Abuse of laxatives; F31.9 Bipolar disorder, unspecified; G43.909 Migraine, unspecified, not intractable, without status migrainosus
CPT/HCPCS: 80048; 80053; 80076; 81001; 82550; 82552; 83735; 84100; 84132; 84155; 84484; 84703; 85025; 85027; 93005; 96361; 96365; 96366; 96375; 96376; G0378; J2270; J2405; J3480; J7030; J7050

== ENCOUNTER 2017-09-07 22:51 | Emergency (ER) | payer SELFPAY ==
[~2017-09-07] VITALS: Ht 162.6 cm; Wt 59.1 kg
[~2017-09-07 22:51] MED LIST changes: -ERYT200S2 PO; -FERR325T PO; +FLUO10CA4 PO; +KLYTECL PO; -PROT40TA PO; +ZOFR4TAB3 SL
[2017-09-07 22:53] VITALS: BP 132/78; PULSE 100; RESP 16; TEMP 98.4; O2SAT 98
[2017-09-08] MEDS ORDERED: FLUO-1 PO (00:21)
[2017-09-08 00:35] VITALS: BP 127/88; PULSE 83; RESP 18; O2SAT 99
[2017-09-08] MEDS ORDERED: IBUPROFEN 600 MG TAB PO ONE (01:15)
[2017-09-08] MEDS ORDERED: ADENOSINE IV SOLN 3 MG/ML 2 ML VIAL ONE ×3 (01:43→01:47)
[2017-09-08] MEDS ORDERED: DILTIAZEM HCL 25 MG/5 ML VIAL ONE (01:50)
[2017-09-08] MEDS ORDERED: METOPROLOL TARTRATE 5 MG/5 ML VIAL IV PUSH ONE (02:00)
[2017-09-08 02:04] VITALS: BP 130/63; PULSE 92; RESP 22; O2SAT 97
--- NOTE | 2017-09-08 02:15 | PD ---
HPI Chief Complaint: Musculoskeletal Complaint Time Seen by Provider: 00:57 Travel History International Travel<30 days: No Contact w/Intl Traveler<30days: No Traveled to known affect area: No History of Present Illness HPI 22-year-old female came to the emergency room with history of bilateral hands cramping. Patient says that she's been having this for past 2 days but since this afternoon it got worse. Her boyfriend is here with her and says that she has been having these symptoms on and off for some time now. In fact she was hospitalized recently and was diagnosed with low potassium. Patient says she does not have primary care physician or insurance. She has been buying over-the -counter potassium pills to correct it but the symptoms continued to progress and worsen. She also says that she has history of bulimia and lost 60 pounds of weight in past 2 months. She says the symptoms have worsened in the recent few weeks. Upon asking about stress she says that the stress is not much different than her usual. However her boyfriend says that she does seem stressed out. She was in the waiting room and because she was not getting seen soon she walked out and went to the parking lot but then the spasm got worse so she returned. When I looked at the time she had been in the emergency department for one hour and 20 minutes total. Vital signs are relatively stable. She says her hands are hurting from the cramps. She denies of any suicidal ideations. [facility] Past Medical History Narrative Medical List of her past medical, surgical, social and family history is reviewed from the nursing note. Hx Anticoagulant Therapy: No ADHD: No Asthma: No Blood Disorders: No Bipolar Disorder: Yes Weight (Kg): 1 Anxiety: Yes Depression: Yes Heart Rhythm Problems: No Cancer: No Cardiovascular Problems: No High Cholesterol: No Chemotherapy: No Chest Pain: Yes Congestive Heart Failure: No COPD: No Cerebrovascular Accident: No Diabetes: No Diminished Hearing: No Gastrointestinal Disorders: Yes (Ulcer but unsure where) Genitourinary: No Headaches: No Immune Disorder: No Musculoskeletal: No Neurologic: No Psychiatric: Yes (BULEMIA) Reproductive: No Respiratory: No Immunizations Current: No Migraines: No Radiation Therapy: No Seizures: No Sleep Apnea: No Thyroid Disease: No Ulcer: Yes Tetanus Vaccination: > 5 Years Influenza Vaccination: No ?: Not LMP: CURRENTLY ON IT Past Surgical History Surgical History: No Previous Surgery Section: Yes Hysterectomy: No Other Surgery: No Social History Alcohol Use: No Tobacco Use: Yes Substance Use: No Allergies-Medications (Allergen,Severity, Reaction): Coded Allergies: aloe vera (Verified Allergy, Severe, Hives, 09/08/17) hydromorphone (Verified Allergy, Intermediate, 09/08/17) "BUG OUT", FEVER Penicillins (Verified Allergy, Unknown, 09/08/17) Comments List of her allergies reviewed from the nursing note. Reported Meds & Prescriptions Reported Meds & Active Scripts Active Zofran Odt (Ondansetron Odt) 4 Mg Tab 4 Mg SL Q6HR PRN Reported Prozac (Fluoxetine HCl) 10 Mg Cap 10 Mg PO DAILY Narrative Medication List of her home medications reviewed from the nursing note. Review of Systems Except as stated in HPI: all other systems reviewed are Neg Musculoskeletal: Positive: Cramping Psychiatric: Positive: Anxiety Physical Exam Narrative GENERAL: Awake, alert, anxious, mild distress SKIN: Focused skin assessment warm/dry. HEAD: Atraumatic. Normocephalic. EYES: Pupils equal and round. No scleral icterus. No injection or drainage. ENT: No nasal bleeding or discharge. Mucous membranes pink and moist. NECK: Trachea midline. No JVD. CARDIOVASCULAR: Regular rate and rhythm. No murmur appreciated. RESPIRATORY: No accessory muscle use. Clear to auscultation. Breath sounds equal bilaterally. GASTROINTESTINAL: Abdomen soft, non-tender, nondistended. Hepatic and splenic margins not palpable. MUSCULOSKELETAL: No obvious deformities. No clubbing. No cyanosis. No edema. Her both hands are flexed at the MCP joints and PIP joints and extended at the DIP joints NEUROLOGICAL: Awake and alert. No obvious cranial nerve deficits. Motor grossly within normal limits. Normal speech. PSYCHIATRIC: Appropriate mood and affect; insight and judgment normal. Data Data Last Documented VS Orders Orders Basic Metabolic Panel (Bmp) (09/08/17 01:09) Electrocardiogram (09/08/17 ) Magnesium (Mg) (09/08/17 01:11) Ibuprofen (Motrin) (09/08/17 01:15) ^ Saline Lock (09/08/17 01:16) Adenosine Inj (Adenocard Inj) (09/08/17 01:43) Adenosine Inj (Adenocard Inj) (09/08/17 01:45) Adenosine Inj (Adenocard Inj) (09/08/17 01:47) Metoprolol Tartrate Inj (Lopressor Inj) (09/08/17 02:00) Diltiazem Inj (Cardizem Inj) (09/08/17 01:50) Lorazepam Inj (Ativan Inj) (09/08/17 04:00) Ed Discharge Order (09/08/17 04:22) Electrocardiogram (09/08/17 01:51) Labs Laboratory Tests Test 09/08/17 01:56 Blood Urea Nitrogen 10 MG/DL Creatinine 1.25 MG/DL Random Glucose 123 MG/DL Calcium Level 10.4 MG/DL Sodium Level 142 MEQ/L Potassium Level 4.0 MEQ/L Chloride Level 100 MEQ/L Carbon Dioxide Level 27.9 MEQ/L Anion Gap 14 MEQ/L Estimat Glomerular Filtration Rate 55 ML/MIN Magnesium Level 2.3 MG/DL MDM Medical Decision Making Medical Screen Exam Complete: Yes Emergency Medical Condition: Yes Medical Record Reviewed: Yes Differential Diagnosis Hypokalemia, hypocalcemia, hypomagnesemia Narrative Course 4:29 AM I looked at her previous visit history and labs after I initially saw the patient. She did have low potassium and the lowest was 2.8. Her calcium was 7.8. Patient was admitted and the hypokalemia was treated by the medical team. We discussed about bulimia causing the electrolyte abnormalities and patient agreed. I was waiting for the blood test results to come back when the nurse called me in the room to tell me that patient was complaining that her hands were hurting a lot and her heart rate was in the 180s to 190s. Immediate EKG was done which was read by me. This showed SVT. I gave her a rapid IV push of 6 mg of adenosine which did not convert her rhythm. I repeated the same rapid IV push with 12 mg of adenosine and this did not cause a classic pause seen with Adenosine but slowed the heart rate into 140s to 150s where I was able to see the P waves. At this point I gave her IV 5 mg of Lopressor. After this the heart rate slowed down into the 100s. Repeat 12-lead EKG at this point showed sinus tachycardia. Patient was given 1 L of IV fluid bolus. Interestingly once her blood test results came back her potassium, magnesium and calcium were completely within normal range. In fact the calcium was slightly high. At this point I was really suspicious for anxiety disorder or conversion disorder. I mentioned this to the patient and I went back into her medical record as far back as 2014. It seems like patient has been seen by psychiatrist few times in [facility]. She was seen by Dr. Tabor in January 2017. As per his note patient has significant psychiatric history in the past. She has been hospitalized 3 times in the past for psychiatric disorder. She has had suicide attempt and multiple histories of cutting. She was seen by Dr. Marquez in 2014 when she was a pediatric patient and was brought in as a [place] act for violent behavior towards her family. I discussed all this with the patient and expressed to her that she needs to be seen by psychiatrist and a psychiatric counselor and should go to [facility] since she does not have insurance. Patient does not seem completely satisfied by that answer. However I am going to discharge her home. Critical Care Narrative Aggregate critical care time was 30 minutes. Time to perform other separately billable procedures was not included in the critical care time. My time did not include minutes spent treating any other patients simultaneously or on activities that did not directly contribute to the patient's treatment. The services I provided to this patient were to treat and/or prevent clinically significant deterioration that could result in: SVT, adenosine I provided critical care services requiring my management, as noted below: Chart data review, documentation time, medication orders and management, vital sign assessments/reviewing monitor data, ordering and reviewing lab tests, ordering and interpreting/reviewing x-rays and diagnostic studies, care of the patient and discussion of the patient with the admitting physicians. Procedures EKG Prior to Arrival: No Diagnosis Primary Impression: Conversion disorder Additional Impression: SVT (supraventricular tachycardia) Referrals: [facility] 1 day Additional Instructions: Please follow-up at [facility]. I'm really concerned about your psychiatric health and in my opinion he'll require psych counseling and possibly psych medications. Return to the ER if the condition worsens or any other new concerns. Med/Other Pt SpecificInfo: No Meds Exist/No RX given Disposition: 01 DISCHARGE HOME Condition: Stable Libia Wilson MD Sep 08, 2017 02:15
[2017-09-08 02:43] LABS: BICARBONATE 27.9 MEQ/L (21.0-32.0)
[2017-09-08 03:07] VITALS: BP 131/60; PULSE 73; RESP 20; O2SAT 100
[2017-09-08] MEDS ORDERED: LORazepam 2 MG/ML VIAL IV PUSH ONE (04:00)
[2017-09-08 04:09] VITALS: BP 117/66; PULSE 98; RESP 20; O2SAT 100
[2017-09-08 05:32] VITALS: BP 130/78
--- NOTE | 2017-09-08 21:20 | EKG ---
Date Performed: 09/08/2017 Time Performed: 01:51:06 PTAGE: 22 years EKG: SINUS TACHYCARDIA NONSPECIFIC ST & T-WAVE ABNORMALITY ABNORMAL RHYTHM ECG PREVIOUS TRACING : 09/08/2017 01.41 Compared to the previous tracing rate slower DOCTOR: Venice Almonte Interpretating Date/Time 09/08/2017 21:19:24
--- NOTE | 2017-09-08 21:20 | EKG ---
Date Performed: 09/08/2017 Time Performed: 01:41:09 PTAGE: 22 years EKG: SUPRAVENTRICULAR TACHYCARDIA NONSPECIFIC ST & T-WAVE ABNORMALITY ABNORMAL RHYTHM ECG PREVIOUS TRACING : 07/28/2017 10.40 Compared to the previous tracing SVT now present DOCTOR: Venice Almonte Interpretating Date/Time 09/15/2017 07:02:17
== END 2017-09-08 05:34 | disposition home or self-care (01) ==
LOC: NEPE 22:51
DX: F44.9 Dissociative and conversion disorder, unspecified (principal); I47.1 Supraventricular tachycardia; F31.9 Bipolar disorder, unspecified; F41.9 Anxiety disorder, unspecified; F50.2 Bulimia nervosa
CPT/HCPCS: 80048; 83735; 93005; 96374; 96375; 99291; J0153; J2060